=== PATIENT | female | born 2000 | race Two or more races ===

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

== ENCOUNTER 2018-06-08 01:30 | Emergency (ER) | payer MEDICAID ==
[2018-06-08] MEDS ORDERED: ACETAMINOPHEN 325 MG TABLET PO ONE (03:28)
[2018-06-08] MEDS ORDERED: AMOXICILLIN TRIHYDRATE 500 MG CAPSULE PO ONE (03:28)
--- NOTE | 2018-06-08 03:34 | ER Document Report ---
ED General - General Chief Complaint: Ear Pain Stated Complaint: EAR PAIN Time Seen by Provider: 06/08/18 02:45 Notes: Patient is a 17-year-old female without chronic medical problems who presents with 2 days of progressively worsening left ear pain. She does describe this as a severe, throbbing, constant pain to the left ear. Nothing seems to worsen the pain, ibuprofen mildly improves the pain. No history of similar symptoms in the past. She has not seen her primary doctor regarding today's concerns. She states that she has had body aches but denies any associated vomiting, headache, difficulty breathing or swallowing. TRAVEL OUTSIDE OF THE [place] IN LAST 30 DAYS: No - Related Data Allergies/Adverse Reactions: No Known Allergies Allergy (Verified 11/10/17 21:05) Past Medical History - General Information source: Patient - Social History Smoking Status: Never Smoker Frequency of alcohol use: None Drug Abuse: None Lives with: Parents Family History: Reviewed & Not Pertinent Renal/ Medical History: Denies: Hx Peritoneal Dialysis Past Surgical History: Reports: Hx Orthopedic Surgery - bilateral foot toe removal, left forearm, Hx Vascular Surgery - L ARM - Immunizations Hx Diphtheria, Pertussis, Tetanus Vaccination: No Review of Systems - Review of Systems Notes: Constitutional: Negative for fever. Positive for body aches HENT: Positive for left ear pain Eyes: Negative for visual changes. Cardiovascular: Negative for chest pain. Respiratory: Negative for shortness of breath. Gastrointestinal: Negative for abdominal pain, vomiting or diarrhea. Genitourinary: Negative for dysuria. Musculoskeletal: Negative for back pain. Skin: Negative for rash. Neurological: Negative for headaches, weakness or numbness. 10 point ROS negative except as marked above and in HPI. Physical Exam - Vital signs Vitals: Temp Pulse Resp BP Pulse Ox 97.6 F 90 16 131/86 H 100 06/08/18 01:41 06/08/18 01:41 06/08/18 01:41 06/08/18 01:41 06/08/18 01:41 Interpretation: Normal Notes: PHYSICAL EXAMINATION: GENERAL: Well-appearing, well-nourished and in no acute distress. HEAD: Atraumatic, normocephalic. EYES: sclera anicteric, conjunctiva are normal. ENT: Moist mucous membranes. Right TM clear, left TM with bulging, erythema and purulent effusion NECK: Normal range of motion, mild left segmental lymphadenopathy LUNGS: Normal work of breathing HEART: 2+ radial pulses bilaterally EXTREMITIES: no pitting or edema. No cyanosis. NEUROLOGICAL: No focal neurological deficits. Moves all extremities spontaneously and on command. PSYCH: Normal mood, normal affect. SKIN: Warm, Dry, normal turgor, no rashes or lesions noted. Course - Re-evaluation Re-evalutation: 06/08/18 03:29 Presentation is most consistent with an acute left-sided otitis media. Clinical history as well as exam is most consistent with this diagnosis. Based on history and examination do not suspect an acute meningitis, encephalitis, peritonsillar abscess, or retropharyngeal abscess. Patient ld is otherwise well in appearance, no acute distress. Vitals otherwise within normal limits. The patient will be started on amoxicillin 3 times a day for 10 days. At this time will discharge with return precautions and follow-up recommendations. Verbal discharge instructions given a the bedside to the parents and opportunity for questions given. Medication warnings reviewed. Patient is in agreement with this plan and has verbalized understanding of return precautions and the need for primary care follow-up in the next 24-72 hours. - Vital Signs Vital signs: Temp Pulse Resp BP Pulse Ox 97.6 F 90 16 131/86 H 100 06/08/18 01:41 06/08/18 01:41 06/08/18 01:41 06/08/18 01:41 06/08/18 01:41 Discharge - Discharge Clinical Impression: Left otitis media Qualifiers: Otitis media type: suppurative Chronicity: acute Recurrence: non-recurrent Spontaneous tympanic membrane rupture: without spontaneous rupture Qualified Code(s): H66.002 - Acute suppurative otitis media without spontaneous rupture of ear drum, left ear Condition: Good Disposition: HOME, SELF-CARE Additional Instructions: You were seen today for ear pain and have an acute ear infection. Please take the antibiotic that has been prescribed until it is completed even if you are feeling better before you have finished all the antibiotics. For your pain: Take ibuprofen 600 mg and acetaminophen 1000 mg every 6 hours together as needed for pain. Return if you have worsening of your pain, loss of hearing in the affected ear, worsening facial pain, headaches, pass out, or any other symptoms that are worrisome to you. Prescriptions: Amoxicillin 1 tab PO TID #30 tab Referrals: YOHAN HOU MD [Primary Care Provider] - Follow up as needed
[2018-06-08 03:40] VITALS: BP 128/74
== END 2018-06-08 03:40 | disposition home or self-care (01) ==
LOC: ER 01:30
DX: H66.002 Acute suppurative otitis media without spontaneous rupture of ear drum, left ear (principal); H92.02 Otalgia, left ear; M79.10 Myalgia, unspecified site
CPT/HCPCS: 99282; J3490

== ENCOUNTER 2018-08-01 20:46 | Emergency (ER) | payer MEDICAID ==
[2018-08-01] MEDS ORDERED: NORMAL SALINE 1000 ML 1,000 ML IV ONE (22:56)
[2018-08-01] MEDS ORDERED: ACETAMINOPHEN 325 MG TABLET PO ONE (22:56)
--- NOTE | 2018-08-01 22:59 | ER Document Report ---
ED General - General Chief Complaint: Abdominal Pain Stated Complaint: DIZZINESS Time Seen by Provider: 08/01/18 22:46 Primary Care Provider: [facility] [Provider Group] - Follow up as needed YOHAN HOU MD [Primary Care Provider] - Follow up tomorrow Mode of Arrival: Ambulatory Information source: Patient Notes: Patient presents complaining of headache, abdominal pain and dizziness for the past 2 days. Patient states presently the dizziness and abdominal pain are resolved. Patient also reports left ear pain for the past week. Patient reports nausea and vomiting x1 episode today. Patient denies any fever diarrhea, vaginal bleeding or discharge. Patient denies any urinary symptoms. TRAVEL OUTSIDE OF THE [place] IN LAST 30 DAYS: No - HPI Onset: Other - Abdominal pain times 2 days, ear pain times 1 week Quality of pain: Achy Pain Level: 2 Associated symptoms: Earache, Nausea, Vomiting. denies: Chest pain, Nonproductive cough, Productive cough, Diarrhea, Fever Exacerbated by: Denies Relieved by: Denies Similar symptoms previously: No Recently seen / treated by doctor: No - Related Data Allergies/Adverse Reactions: No Known Allergies Allergy (Verified 11/10/17 21:05) Past Medical History - General Information source: Patient - Social History Smoking Status: Never Smoker Frequency of alcohol use: None Drug Abuse: None Occupation: [employer] Lives with: Spouse/Significant other Family History: Reviewed & Not Pertinent - Medical History Medical History: Negative Renal/ Medical History: Denies: Hx Peritoneal Dialysis Past Surgical History: Reports: Hx Orthopedic Surgery - bilateral foot toe removal, left forearm, Hx Vascular Surgery - L ARM - Immunizations Hx Diphtheria, Pertussis, Tetanus Vaccination: No Review of Systems - Review of Systems Constitutional: No symptoms reported. denies: Fever, Recent illness EENT: Ear pain, Ear discharge Cardiovascular: Dizziness - Now resolved Respiratory: No symptoms reported. denies: Cough, Short of breath Gastrointestinal: Abdominal pain, Nausea, Vomiting. denies: Diarrhea Genitourinary: No symptoms reported. denies: Dysuria, Flank pain Female Genitourinary: Painful intercourse. denies: , Vaginal discharge Musculoskeletal: No symptoms reported. denies: Back pain Skin: No symptoms reported Hematologic/Lymphatic: No symptoms reported Neurological/Psychological: Headaches Physical Exam - Vital signs Vitals: Temp Pulse Resp BP Pulse Ox 98.5 F 100 H 14 137/79 H 99 08/01/18 21:02 08/01/18 21:02 08/01/18 21:02 08/01/18 21:02 08/01/18 21:02 - General General appearance: Appears well, Alert In distress: None - HEENT Head: Normocephalic Eyes: Normal Conjunctiva: Normal Ears: Normal External canal: Other - Purulent drainage and debris to the left external auditory canal, serous effusion to the right ear. No mastoid tenderness or swelling. Patient does have tenderness with movement of left helix. Tympanic membrane: Serous effusion - Left Nasal: Normal Mouth/Lips: Normal Mucous membranes: Normal Pharynx: Normal. No: Erythema, Exudate, Peritonsillar abscess Neck: Normal, Supple. No: Lymphadenopathy, Meningismus - Respiratory Respiratory status: No respiratory distress Chest status: Nontender Breath sounds: Normal. No: Rales, Rhonchi, Stridor, Wheezing Chest palpation: Normal - Cardiovascular Rhythm: Regular Heart sounds: S1 appreciated, S2 appreciated Murmur: No - Abdominal Inspection: Obese Distension: No distension Bowel sounds: Normal Tenderness: Tender - Lower pelvic Organomegaly: No organomegaly - Genitourinary External exam: Normal Speculum exam: Cervix closed, Vaginal discharge Vaginal bleeding: None Bimanuel exam: Adnexal tenderness - Bilateral. No: Adnexal mass - Back Back: Normal, Nontender. No: CVA tenderness - Extremities General upper extremity: Normal inspection, Normal strength General lower extremity: Normal inspection, Normal strength - Neurological Neuro grossly intact: Yes Cognition: Normal [employer] Coma Scale Eye Opening: Spontaneous Mona Coma Scale Verbal: Oriented [employer] Coma Scale Motor: Obeys Commands Mona Coma Scale Total: 15 - Psychological Associated symptoms: Normal affect, Normal mood - Skin Skin Temperature: Warm Skin Moisture: Dry Skin Color: Normal Course - Re-evaluation Re-evalutation: 08/02/18 02:12 Patient's abdomen soft, patient does have some left lower pelvic tenderness on examination. Patient does have an ovarian cyst noted on ultrasound. No right lower quadrant or McBurney tenderness. No concern for appendicitis at this time. Patient does have serous effusion with an external ear infection which is likely causing her dizzy symptoms at this time. Patient nontoxic in appearance. Good return precautions discussed with patient and family. Patient presents with abdominal pain without signs of peritonitis or other life-threatening or serious etiology. Patient appears stable for discharge and has been instructed to return immediately if the symptoms worsen in any way for reevaluation. The patient has been instructed to return if the symptoms worsen or change in any way. - Vital Signs Vital signs: Temp Pulse Resp BP Pulse Ox 98.7 F 97 H 18 133/73 H 99 08/02/18 01:20 08/02/18 01:20 08/02/18 01:20 08/02/18 01:20 08/02/18 01:20 - Laboratory Result Diagrams: 08/01/18 23:30 08/01/18 23:30 Laboratory results interpreted by me: Labs- Entire Visit 08/01/18 08/01/18 08/01/18 22:52 23:00 23:30 WBC 9.8 RBC 4.98 Hgb 14.8 Hct 43.5 MCV 87 MCH 29.8 MCHC 34.1 RDW 12.8 Plt Count 269 Seg Neutrophils % 58.5 Lymphocytes % 31.6 Monocytes % 8.0 Eosinophils % 1.4 Basophils % 0.5 Absolute Neutrophils 5.8 Absolute Lymphocytes 3.1 Absolute Monocytes 0.8 Absolute Eosinophils 0.1 Absolute Basophils 0.0 Sodium Potassium Chloride Carbon Dioxide Anion Gap BUN Creatinine Est GFR ( Amer) Est GFR (Non-Af Amer) Glucose Calcium Total Bilirubin Direct Bilirubin Neonat Total Bilirubin Neonat Direct Bilirubin Neonat Indirect Bili AST ALT Alkaline Phosphatase Total Protein Albumin Serum HCG, Qual Urine Color YELLOW Urine Appearance SLIGHTLY-CLOUDY Urine pH 5.0 Ur Specific [place] 1.027 Urine Protein NEGATIVE Urine Glucose (UA) NEGATIVE Urine Ketones NEGATIVE Urine Blood NEGATIVE Urine Nitrite NEGATIVE Urine Bilirubin NEGATIVE Urine Urobilinogen NEGATIVE Ur Leukocyte Esterase NEGATIVE Urine WBC (Auto) 1 Urine RBC (Auto) 0 Urine Bacteria (Auto) TRACE Squamous Epi Cells Auto 5 Urine Mucus (Auto) FEW Urine Ascorbic Acid NEGATIVE Epi Cells (Wet Prep) Bacteria (Wet Prep) Trichomonas (Wet Prep) Vaginal WBC Vaginal RBC Vaginal Yeast Chlamydia DNA (PCR) N.gonorrhoeae DNA (PCR) Group A Strep Rapid NEGATIVE 08/01/18 08/01/18 08/02/18 23:30 23:30 00:02 WBC RBC Hgb Hct MCV MCH MCHC RDW Plt Count Seg Neutrophils % Lymphocytes % Monocytes % Eosinophils % Basophils % Absolute Neutrophils Absolute Lymphocytes Absolute Monocytes Absolute Eosinophils Absolute Basophils Sodium 138.8 Potassium 4.1 Chloride 104 Carbon Dioxide 28 Anion Gap 7 BUN 16 Creatinine 0.64 Est GFR ( Amer) > 60 Est GFR (Non-Af Amer) > 60 Glucose 86 Calcium 9.4 Total Bilirubin 0.3 Direct Bilirubin 0.2 Neonat Total Bilirubin Not Reportable Neonat Direct Bilirubin Not Reportable Neonat Indirect Bili Not Reportable AST 17 ALT 20 Alkaline Phosphatase 76 Total Protein 7.1 Albumin 4.3 Serum HCG, Qual NEGATIVE Urine Color Urine Appearance Urine pH Ur Specific [place] Urine Protein Urine Glucose (UA) Urine Ketones Urine Blood Urine Nitrite Urine Bilirubin Urine Urobilinogen Ur Leukocyte Esterase Urine WBC (Auto) Urine RBC (Auto) Urine Bacteria (Auto) Squamous Epi Cells Auto Urine Mucus (Auto) Urine Ascorbic Acid Epi Cells (Wet Prep) Bacteria (Wet Prep) Trichomonas (Wet Prep) Vaginal WBC Vaginal RBC Vaginal Yeast Chlamydia DNA (PCR) NOT DETECTED N.gonorrhoeae DNA (PCR) NOT DETECTED Group A Strep Rapid 08/02/18 00:02 WBC RBC Hgb Hct MCV MCH MCHC RDW Plt Count Seg Neutrophils % Lymphocytes % Monocytes % Eosinophils % Basophils % Absolute Neutrophils Absolute Lymphocytes Absolute Monocytes Absolute Eosinophils Absolute Basophils Sodium Potassium Chloride Carbon Dioxide Anion Gap BUN Creatinine Est GFR ( Amer) Est GFR (Non-Af Amer) Glucose Calcium Total Bilirubin Direct Bilirubin Neonat Total Bilirubin Neonat Direct Bilirubin Neonat Indirect Bili AST ALT Alkaline Phosphatase Total Protein Albumin Serum HCG, Qual Urine Color Urine Appearance Urine pH Ur Specific [place] Urine Protein Urine Glucose (UA) Urine Ketones Urine Blood Urine Nitrite Urine Bilirubin Urine Urobilinogen Ur Leukocyte Esterase Urine WBC (Auto) Urine RBC (Auto) Urine Bacteria (Auto) Squamous Epi Cells Auto Urine Mucus (Auto) Urine Ascorbic Acid Epi Cells (Wet Prep) 4+ EPITHELIALS SEEN Bacteria (Wet Prep) 4+ BACTERIA SEEN Trichomonas (Wet Prep) NO TRICHOMONAS SEEN Vaginal WBC 4+ WBCS SEEN Vaginal RBC NO RBCS SEEN Vaginal Yeast NO YEAST SEEN Chlamydia DNA (PCR) N.gonorrhoeae DNA (PCR) Group A Strep Rapid - Diagnostic Test Radiology reviewed: Reports reviewed Discharge - Discharge Clinical Impression: Pelvic pain, Bacterial vaginosis Otitis externa Qualifiers: Otitis externa type: unspecified type Chronicity: acute Laterality: left Qualified Code(s): H60.502 - Unspecified acute noninfective otitis externa, left ear Ovarian cyst Qualifiers: Laterality: left Qualified Code(s): N83.202 - Unspecified ovarian cyst, left side Nausea & vomiting Qualifiers: Vomiting type: unspecified Vomiting Intractability: non-intractable Qualified Code(s): R11.2 - Nausea with vomiting, unspecified Condition: Stable Disposition: HOME, SELF-CARE Instructions: Use of Ear Drops ([facility]), Observation for Appendicitis ([facility]), Otitis Externa ([facility]), Ovarian Cyst ([facility]), Vaginosis, Bacterial ([facility]), Vomiting ([facility]) Additional Instructions: Return immediately for any new or worsening symptoms Followup with your primary care provider, call tomorrow to make a followup appointment Follow-up with a solutions sales consultant for further evaluation of ovarian cyst Prescriptions: Metronidazole [Flagyl 500 mg Tablet] 500 mg PO BID #14 tablet Naproxen [Naprosyn 250 Nmg Tablet] 1 tab PO BID #14 tablet Neomy Sulf/Polymyx B Sulf/Hc [Cortisporin Ear Suspension] 4 drop OT QID #1 bottle Ondansetron HCl [Zofran 4 mg Tablet] 1 - 2 tab PO Q6 PRN #12 tablet PRN Reason: Forms: Return to Work Referrals: YOHAN HOU MD [Primary Care Provider] - Follow up tomorrow [facility] [Provider Group] - Follow up as needed
[2018-08-01 23:36] LABS: APPEARANCE,URINE SLIGHTLY-CLOUDY; BILIRUBIN,URINE NEGATIVE (NEGATIVE); COLOR,URINE YELLOW; GLUCOSE, URINE NEGATIVE (NEGATIVE); KETONES,URINE NEGATIVE (NEGATIVE); LEUKOCYTE ESTERASE,URINE NEGATIVE (NEGATIVE); NITRITE,URINE NEGATIVE (NEGATIVE); PROTEIN,URINE NEGATIVE (NEGATIVE); URINE SPECIFIC GRAVITY 1.027; UROBILINOGEN,URINE NEGATIVE mg/dL (<2.0)
[2018-08-01 23:42] LABS: ABSOLUTE EOSINOPHILS # (AUTO) 0.1 10^3/uL (0.0-0.6); ABSOLUTE LYMPHOCYTES (AUTO) 3.1 10^3/uL (0.5-4.7); ABSOLUTE MONOCYTES (AUTO) 0.8 10^3/uL (0.1-1.4); ABSOLUTE NEUT (AUTO) 5.8 10^3/uL (1.7-8.2); BASOPHILS % (AUTO) 0.5 % (0-2); EOSINOPHILS % (AUTO) 1.4 % (0-6); HEMATOCRIT 43.5 % (36.0-47.0); HEMOGLOBIN 14.8 g/dL (12.0-15.5); LYMPHOCYTES % (AUTO) 31.6 % (13-45); MEAN CORPUSCULAR HEMOGLOBIN 29.8 pg (27.0-33.4); MEAN CORPUSCULAR HGB CONC 34.1 g/dL (32.0-36.0); MEAN CORPUSCULAR VOLUME 87 fl (80-97); PLATELET COUNT 269 10^3/uL (150-450); RED BLOOD COUNT 4.98 10^6/uL (3.72-5.28); RED CELL DISTRIBUTION WIDTH 12.8 % (11.5-14.0); SEGMENTED NEUTROPHILS % (AUTO) 58.5 % (42-78); TOTAL CELLS COUNTED % (AUTO) 100 %; WHITE BLOOD COUNT 9.8 10^3/uL (4.0-10.5)
[2018-08-01 23:56] LABS: ALANINE AMINOTRANSFERASE 20 U/L (5-35); ALBUMIN 4.3 g/dL (3.7-5.6); ALKALINE PHOSPHATASE 76 U/L (50-135); ANION GAP 7 (5-19); ASPARTATE AMINO TRANSFERASE 17 U/L (5-30); BILIRUBIN,DIRECT 0.2 mg/dL (0.0-0.4); BILIRUBIN,TOTAL 0.3 mg/dL (0.2-1.3); BLOOD UREA NITROGEN 16 mg/dL (7-20); CALCIUM 9.4 mg/dL (8.4-10.2); CARBON DIOXIDE 28 mmol/L (22-30); CHLORIDE 104 mmol/L (98-107); GLUCOSE 86 mg/dL (75-110); POTASSIUM 4.1 mmol/L (3.6-5.0); SODIUM 138.8 mmol/L (137-145); TOTAL PROTEIN 7.1 g/dL (6.3-8.2)
[2018-08-02 00:27] LABS: BACTERIA (WET MOUNT) 4+ BACTERIA SEEN; EPITHELIALS (WET MOUNT) 4+ EPITHELIALS SEEN; RBCS (WET MOUNT) NO RBCS SEEN; T.VAGINALIS (WET MOUNT) NO TRICHOMONAS SEEN; WBCS (WET MOUNT) 4+ WBCS SEEN; YEAST (WET MOUNT) NO YEAST SEEN
[2018-08-02 01:21] VITALS: BP 133/73
[2018-08-02 01:52] LABS: CHLAM PCR NOT DETECTED (NOT DETECT); GON PCR NOT DETECTED (NOT DETECT)
--- NOTE | 2018-08-02 02:00 | RADIOLOGY REPORT (SQ) ---
EXAM DESCRIPTION: US TRANSVAGINAL COMPLETED DATE/TME: 08/02/2018 00:08 CLINICAL HISTORY: 17 years, Female, pelvic pain COMPARISON: 03/14/2017 ultrasound TECHNIQUE: Transverse and longitudinal transvaginal sonographic images of the pelvis LIMITATIONS: None. FINDINGS: The uterus measures 7.9 x 5.0 x 4.0 cm. The myometrium is homogenous. The endometrium measures 1.7 cm in thickness. A trace of free fluid anteriorly. This may be iatrogenic. The right ovary measures 3.1 x 2.0 x 2.1 cm. Left ovary measures 5.1 x 2.7 x 3.2 cm. Doppler and spectral analysis with color flow was utilized. Arterial and venous flow to both ovaries. Bilateral ovarian follicles with what is likely a dominant follicular cyst on the left measuring 2.7 x 2.4 x 2.0 cm. IMPRESSION: Trace of free fluid which is likely physiologic. Probable dominant follicle of the left ovary. Recommendations for f/u of ovarian anechoic simple cyst, simple cyst with single thin <3 mm septation, or focal calcification in wall of cyst (1): Pre-menopause: <= 5 cm No follow-up imaging recommended >5 cm - <=7 cm US f/u annually >7 cm Consider MR w/IVC or surgical evaluation Post-menopause (>=1 year from last menstrual period): <=3 cm No follow-up imaging recommended >3 cm - <=7 cm US f/u annually >7 cm Consider MR w/IVC or surgical evaluation (1) Recommendations based on 2010 SRU Consensus Conference Statement on the Management of Asymptomatic Ovarian and Other Adnexal Cysts Imaged at US: Radiology. 2009;256(3):943-54 copyright 2010 [employer]- All Rights Reserved
[2018-08-02] MEDS ORDERED: HYDROCODONE/ACETAMINOPHEN 5-325 MG (6 TAB/ER DISP) PO PRN (02:15)
== END 2018-08-02 02:20 | disposition home or self-care (01) ==
LOC: ER 20:46
DX: N76.0 Acute vaginitis (principal); B96.89 Other specified bacterial agents as the cause of diseases classified elsewhere; H60.502 Unspecified acute noninfective otitis externa, left ear; N83.202 Unspecified ovarian cyst, left side; R10.2 Pelvic and perineal pain; R10.9 Unspecified abdominal pain; R42 Dizziness and giddiness; H92.02 Otalgia, left ear; R11.2 Nausea with vomiting, unspecified
CPT/HCPCS: 99284; 96360; 36415; 87070 ×2; 87205; 87210; 87880; 84703; 85025; 87077; 80053; 81001; 87491; 87591; 76830; 93976; J3490; J7030

== ENCOUNTER 2018-10-11 03:12 | Emergency (ER) | payer MEDICAID ==
[2018-10-11 03:29] VITALS: BP 129/64
[2018-10-11] MEDS ORDERED: ACETAMINOPHEN 325 MG TABLET PO ONE (03:45)
[2018-10-11] MEDS ORDERED: NORMAL SALINE 1000 ML 1,000 ML IV ONE (03:46)
--- NOTE | 2018-10-11 03:50 | ER Document Report ---
ED General - General Chief Complaint: OB Problem (<20wks) Stated Complaint: DIZZINESS AND ABDOMINAL PAIN Time Seen by Provider: 10/11/18 03:37 Primary Care Provider: YOHAN HOU MD [ACTIVE STAFF] - Follow up as needed TRAVEL OUTSIDE OF THE [place] IN LAST 30 DAYS: No - HPI Notes: Patient is a 18-year-old female, G1, P0 at approximately 8 weeks gestation who presents to the emergency department for abdominal pain. She states she has been having lower abdominal pain for a few weeks. She really comes in today because she is having epigastric pain. It is sharp and stabbing. It does not radiate. She is had nausea with 2 episodes of emesis today, nonbloody nonbilious. She denies any fevers or chills. She states she has been having firm bowel movements. No dysuria, hematuria, or urinary frequency. She does complain of occasionally feeling lightheaded and dizzy over the last week as well. She denies any of this at this point. She states she is tolerating some fluids. The patient states she actually had a transvaginal ultrasound performed today at [facility]. She states that the fetus is measuring just under 8 weeks, but there is no visible heartbeat. She supposed to come back on Sunday for a repeat ultrasound. She denies any vaginal discharge or bleeding. - Related Data Allergies/Adverse Reactions: No Known Allergies Allergy (Verified 11/10/17 21:05) Past Medical History - General Information source: Patient - Social History Smoking Status: Former Smoker Family History: Reviewed & Not Pertinent Renal/ Medical History: Denies: Hx Peritoneal Dialysis Past Surgical History: Reports: Hx Orthopedic Surgery - bilateral foot toe removal, left forearm, Hx Vascular Surgery - L ARM - Immunizations Hx Diphtheria, Pertussis, Tetanus Vaccination: No Review of Systems - Review of Systems Constitutional: No symptoms reported EENT: No symptoms reported Cardiovascular: No symptoms reported Respiratory: No symptoms reported Gastrointestinal: See HPI Genitourinary: No symptoms reported Female Genitourinary: See HPI Musculoskeletal: No symptoms reported Skin: No symptoms reported Neurological/Psychological: No symptoms reported Physical Exam - Vital signs Vitals: Temp Pulse Resp BP Pulse Ox 98.8 F 78 18 129/64 H 98 10/11/18 03:27 10/11/18 03:27 10/11/18 03:27 10/11/18 03:27 10/11/18 03:27 - Notes Notes: Vital signs reviewed, please refer to chart. Patient is normocephalic, atraumatic. Pupils equal round, reactive to light. Neck is supple without meningismus. Heart is regular rate and rhythm. Lungs are clear to auscultation bilaterally. Abdomen is soft, moderately tender in the epigastric region without rebound or guarding, normoactive bowel sounds throughout. Extremities without cyanosis, clubbing, edema. Peripheral pulses are equal. Skin is warm and dry. Patient is awake, alert, neurological exam is nonfocal. Course - Re-evaluation Re-evalutation: 10/11/18 03:49 Presents to the emergency department for evaluation. She complains of lower abdominal pain, but she is already had an ultrasound that confirmed intrauterine , although no heart beat was seen. She already has follow-up with this. We will further evaluate the patient for this epigastric pain. She is medicated here with IV fluids and Tylenol. Laboratory investigations ordered. Will monitor. 10/11/18 05:38 Patient feeling improved. I am unclear as to the etiology of her upper abdominal pain, but serial abdominal exams are benign. She is to follow-up with the women's health clinic next week, have repeat ultrasound. It is reinforced with this patient that should she have vaginal bleeding she needs to be seen. She voiced understanding to this and was discharged. - Vital Signs Vital signs: Temp Pulse Resp BP Pulse Ox 98.8 F 78 18 129/64 H 98 10/11/18 03:27 10/11/18 03:27 10/11/18 03:27 10/11/18 03:27 10/11/18 03:27 - Laboratory Result Diagrams: 10/11/18 04:30 10/11/18 04:30 Laboratory results interpreted by me: 10/11/18 04:00 Ur Leukocyte Esterase TRACE H Urine HCG, Qual POSITIVE H Discharge - Discharge Clinical Impression: Epigastric abdominal pain Condition: Stable Disposition: HOME, SELF-CARE Instructions: Abdominal Pain ([facility]) Additional Instructions: No clear cause was found for your abdominal pain today. Rest, clear liquids. Have your ultrasound as scheduled next week. If you develop vaginal bleeding, increased pain, or worsening or new concerning symptoms of any sort, return immediately to the emergency department for reevaluation. Referrals: YOHAN HOU MD [ACTIVE STAFF] - Follow up as needed
[2018-10-11 04:24] LABS: APPEARANCE,URINE CLEAR; BILIRUBIN,URINE NEGATIVE (NEGATIVE); COLOR,URINE YELLOW; GLUCOSE, URINE NEGATIVE (NEGATIVE); KETONES,URINE NEGATIVE (NEGATIVE); LEUKOCYTE ESTERASE,URINE TRACE (NEGATIVE); NITRITE,URINE NEGATIVE (NEGATIVE); PROTEIN,URINE NEGATIVE (NEGATIVE); URINE SPECIFIC GRAVITY 1.021; UROBILINOGEN,URINE NEGATIVE mg/dL (<2.0)
[2018-10-11 04:47] LABS: ABSOLUTE EOSINOPHILS # (AUTO) 0.1 10^3/uL (0.0-0.6); ABSOLUTE LYMPHOCYTES (AUTO) 2.7 10^3/uL (0.5-4.7); ABSOLUTE NEUT (AUTO) 6.3 10^3/uL (1.7-8.2); BASOPHILS % (AUTO) 0.4 % (0-2); EOSINOPHILS % (AUTO) 1.1 % (0-6); HEMATOCRIT 38.5 % (36.0-47.0); HEMOGLOBIN 13.2 g/dL (12.0-15.5); LYMPHOCYTES % (AUTO) 26.5 % (13-45); MEAN CORPUSCULAR HEMOGLOBIN 29.1 pg (27.0-33.4); MEAN CORPUSCULAR HGB CONC 34.1 g/dL (32.0-36.0); MEAN CORPUSCULAR VOLUME 85 fl (80-97); MONOCYTES % (AUTO) 10.2 % (3-13); PLATELET COUNT 295 10^3/uL (150-450); RED BLOOD COUNT 4.52 10^6/uL (3.72-5.28); RED CELL DISTRIBUTION WIDTH 12.8 % (11.5-14.0); SEGMENTED NEUTROPHILS % (AUTO) 61.8 % (42-78); TOTAL CELLS COUNTED % (AUTO) 100 %; WHITE BLOOD COUNT 10.2 10^3/uL (4.0-10.5)
[2018-10-11 05:07] LABS: ALANINE AMINOTRANSFERASE 23 U/L (9-52); ALBUMIN 3.7 g/dL (3.5-5.0); ALKALINE PHOSPHATASE 58 U/L (38-126); ANION GAP 9 (5-19); ASPARTATE AMINO TRANSFERASE 14 U/L (14-36); BILIRUBIN,DIRECT 0.2 mg/dL (0.0-0.4); BILIRUBIN,TOTAL 0.2 mg/dL (0.2-1.3); BLOOD UREA NITROGEN 14 mg/dL (7-20); CALCIUM 9.8 mg/dL (8.4-10.2); CARBON DIOXIDE 25 mmol/L (22-30); CHLORIDE 106 mmol/L (98-107); GLUCOSE 84 mg/dL (75-110); LIPASE 91.8 U/L (23-300); POTASSIUM 3.7 mmol/L (3.6-5.0); SODIUM 139.9 mmol/L (137-145); TOTAL PROTEIN 6.7 g/dL (6.3-8.2)
== END 2018-10-11 05:54 | disposition home or self-care (01) ==
LOC: ER 03:12
DX: O26.91 Pregnancy related conditions, unspecified, first trimester (principal); R10.13 Epigastric pain; R10.30 Lower abdominal pain, unspecified; Z3A.08 8 weeks gestation of pregnancy
CPT/HCPCS: 99284; 36415; 83690; 85025; 81025; 80053; 81001; J3490; J7030

== ENCOUNTER → 2018-10-18 | Outpatient (CLI) | payer MEDICAID | LOC: OD 14:04 | PROVIDERS: ATTEND Student in an Organized Health Care Education/Training Program | DX: O02.1 Missed abortion (principal) | CPT/HCPCS: 36415; 84702 ==

== ENCOUNTER 2018-10-20 21:16 | Emergency (ER) | payer MEDICAID ==
[2018-10-20 23:45] LABS: APPEARANCE,URINE SLIGHTLY-CLOUDY; BILIRUBIN,URINE NEGATIVE (NEGATIVE); COLOR,URINE YELLOW; GLUCOSE, URINE NEGATIVE (NEGATIVE); KETONES,URINE 80 mg/dL (NEGATIVE); LEUKOCYTE ESTERASE,URINE TRACE (NEGATIVE); NITRITE,URINE NEGATIVE (NEGATIVE); PROTEIN,URINE NEGATIVE (NEGATIVE); URINE SPECIFIC GRAVITY 1.027; UROBILINOGEN,URINE NEGATIVE mg/dL (<2.0)
[2018-10-21] MEDS ORDERED: NORMAL SALINE 1000 ML 1,000 ML IV ONE (00:17)
[2018-10-21] MEDS ORDERED: ONDANSETRON HCL INJ/PF 4 MG/2 ML SDV IV ONE (00:18)
[2018-10-21] MEDS ORDERED: MORPHINE SULFATE 10 MG/ML INJ IV ONE (00:18)
[2018-10-21 00:32] LABS: ABSOLUTE EOSINOPHILS # (AUTO) 0.1 10^3/uL (0.0-0.6); ABSOLUTE LYMPHOCYTES (AUTO) 2.4 10^3/uL (0.5-4.7); ABSOLUTE MONOCYTES (AUTO) 0.7 10^3/uL (0.1-1.4); ABSOLUTE NEUT (AUTO) 7.5 10^3/uL (1.7-8.2); BASOPHILS % (AUTO) 0.4 % (0-2); EOSINOPHILS % (AUTO) 0.6 % (0-6); HEMATOCRIT 39.1 % (36.0-47.0); HEMOGLOBIN 13.2 g/dL (12.0-15.5); LYMPHOCYTES % (AUTO) 22.3 % (13-45); MEAN CORPUSCULAR HEMOGLOBIN 28.9 pg (27.0-33.4); MEAN CORPUSCULAR HGB CONC 33.6 g/dL (32.0-36.0); MEAN CORPUSCULAR VOLUME 86 fl (80-97); MONOCYTES % (AUTO) 6.7 % (3-13); PLATELET COUNT 317 10^3/uL (150-450); RED BLOOD COUNT 4.55 10^6/uL (3.72-5.28); RED CELL DISTRIBUTION WIDTH 12.7 % (11.5-14.0); TOTAL CELLS COUNTED % (AUTO) 100 %; WHITE BLOOD COUNT 10.7 10^3/uL (4.0-10.5)
[2018-10-21 00:46] LABS: ALANINE AMINOTRANSFERASE 35 U/L (9-52); ALBUMIN 4.2 g/dL (3.5-5.0); ALKALINE PHOSPHATASE 68 U/L (38-126); ANION GAP 10 (5-19); ASPARTATE AMINO TRANSFERASE 85 U/L (14-36); BILIRUBIN,DIRECT 0.3 mg/dL (0.0-0.4); BILIRUBIN,TOTAL 0.4 mg/dL (0.2-1.3); BLOOD UREA NITROGEN 8 mg/dL (7-20); CALCIUM 9.2 mg/dL (8.4-10.2); CARBON DIOXIDE 24 mmol/L (22-30); CHLORIDE 105 mmol/L (98-107); GLUCOSE 89 mg/dL (75-110); POTASSIUM 3.7 mmol/L (3.6-5.0); TOTAL PROTEIN 7.7 g/dL (6.3-8.2)
[2018-10-21] MEDS ORDERED: ONDANSETRON ODT 4 MG TAB (6 TAB/ER DISP) PO PRN (02:04)
[2018-10-21] MEDS ORDERED: HYDROCODONE/ACETAMINOPHEN 5-325 MG TABLET PO ONE (02:05)
--- NOTE | 2018-10-21 02:12 | ER Document Report ---
ED GI/ - General Chief Complaint: Pelvic Pain Stated Complaint: ABDOMINAL PAIN Time Seen by Provider: 10/20/18 23:53 Primary Care Provider: CHERRY BOLANOS MD [Primary Care Provider] - Follow up as needed TRAVEL OUTSIDE OF THE [place] IN LAST 30 DAYS: No - HPI Notes: 10/21/18 Patient is a 18-year-old female who presents to the emergency department for the chief complaint of lower abdominal pain. Patient states that she was [facility] October 16 and was diagnosed with a demise at around 7 weeks 6 days. Patient states that she wants to pass the baby and/or products naturally without medication if possible and this was discussed at her OB visit. Patient states she was prescribed Tylenol #3 and sent home. Patient does have a follow-up appointment this Sunday the . Patient reports she has had an intermittent sharp discomfort to the mid lower abdomen that has become more constant tonight around 8 PM. Patient states she has had nausea as well as vomiting. Patient states she has vomited one time per day for the past 4 days. Patient denies vaginal bleeding or discharge. Patient denies chills or fever at home. Patient reports that she has had some diarrhea 2-3 times daily for the past few weeks. Patient states she has attempted to take the Tylenol #3 without relief. Mother at bedside states that she wanted her to come to get checked out because she is not sure if her symptoms are normal for what she is going through and they are not sure what to expect. Patient does deny urinary symptoms. - Related Data Allergies/Adverse Reactions: No Known Allergies Allergy (Verified 10/20/18 22:59) Past Medical History - General Information source: Patient - Social History Smoking Status: Unknown if Ever Smoked Cigarette use (# per day): No Chew tobacco use (# tins/day): No Frequency of alcohol use: None Drug Abuse: None Lives with: Family Family History: Reviewed & Not Pertinent Patient has suicidal ideation: No Patient has homicidal ideation: No - Medical History Medical History: Negative - Past Medical History Cardiac Medical History: Reports: None Pulmonary Medical History: Reports: None EENT Medical History: Reports: None Neurological Medical History: Reports: None Endocrine Medical History: Reports: None Renal/ Medical History: Reports: None. Denies: Hx Peritoneal Dialysis Malignancy Medical History: Reports: None GI Medical History: Reports: None Musculoskeletal Medical History: Reports None Skin Medical History: Reports None Psychiatric Medical History: Reports: None Traumatic Medical History: Reports: None Infectious Medical History: Reports: None Surgical Hx: Negative Past Surgical History: Reports: None, Hx Orthopedic Surgery - bilateral foot toe removal, left forearm, Hx Vascular Surgery - L ARM - Immunizations Hx Diphtheria, Pertussis, Tetanus Vaccination: No Review of Systems - Review of Systems Constitutional: See HPI EENT: No symptoms reported Cardiovascular: No symptoms reported Respiratory: No symptoms reported Gastrointestinal: See HPI Genitourinary: See HPI Female Genitourinary: No symptoms reported Musculoskeletal: No symptoms reported Skin: No symptoms reported Hematologic/Lymphatic: No symptoms reported Neurological/Psychological: No symptoms reported Physical Exam - Vital signs Vitals: Temp Pulse Resp BP Pulse Ox 98.5 F 87 20 122/65 99 10/20/18 21:38 10/20/18 21:38 10/20/18 21:38 10/20/18 21:38 10/20/18 21:38 Interpretation: Normal - Notes Notes: GENERAL: Well-appearing, well-nourished and in no acute distress. HEAD: Atraumatic, normocephalic. EYES: Pupils equal round and reactive to light, extraocular movements intact, sclera anicteric, conjunctiva are normal. ENT: TMs normal, nares patent, oropharynx clear without exudates. Moist mucous membranes. NECK: Normal range of motion, supple without lymphadenopathy or JVD. LUNGS: Breath sounds clear to auscultation bilaterally and equal. No wheezes rales or rhonchi. HEART: Regular rate and rhythm without murmurs, rubs or gallops. ABDOMEN: Soft, mildy tender throughout entire abdomen, normoactive bowel sounds. No guarding, no rebound. No masses appreciated. EXTREMITIES: Normal range of motion, no pitting or edema. No clubbing or cyanosis. NEUROLOGICAL: Cranial nerves II through XII grossly intact. Normal speech, normal gait. PSYCH: Normal mood, normal affect. SKIN: Warm, Dry, normal turgor, no rashes or lesions noted. Course - Re-evaluation Re-evalutation: 10/21/18 01:[address] Rosario with [facility] regarding patient's case and lab work. Urine culture was added as the urinalysis was non-impressive but did show trace leuks with some WBCs. Dr. Rosario recommends patient to keep her follow-up appointment this upcoming Sunday. Recommends stronger medication for pain and antinausea medicine. Patient to return to the emergency department for worsening of pain that is not controlled with her prescriptions, fever, severe abdominal pain, vaginal bleeding that is heavier than a period, large amounts of tissue and clots or worsening signs or symptoms. Did discuss this with the patient and family. Patient in agreement of plan. Will stop taking the Tylenol #3 and switch to Percocet. Patient did have ketones in her urine, one liter of IVF's given in the emergency department. Informed patient to increase fluid intake. - Vital Signs Vital signs: Temp Pulse Resp BP Pulse Ox 98.3 F 87 16 120/78 100 10/21/18 02:27 10/20/18 21:38 10/21/18 02:27 10/21/18 02:27 10/21/18 02:27 - Laboratory Result Diagrams: 10/20/18 23:08 10/20/18 23:08 Laboratory results interpreted by me: 10/20/18 10/20/18 10/20/18 23:08 23:08 23:08 WBC 10.7 H AST Beta HCG, Quant 35976.00 H Urine Ketones 80 H Ur Leukocyte Esterase TRACE H 10/20/18 23:08 WBC AST 85 H Beta HCG, Quant Urine Ketones Ur Leukocyte Esterase Patient beta-hCG, quant is 10,000 less then few days ago. This is trending downward consistent impending miscarriage. Discharge - Discharge Clinical Impression: Miscarriage, Nausea, Abdominal pain Condition: Stable Disposition: HOME, SELF-CARE Additional Instructions: Today you were seen in the emergency department for abdominal pain and nausea after demise. We did repeat your numbers (HCG quant) in your blood work and they do appear to be trending downward. This is normal. I spoke with Dr. Rosario with [facility] who would like you to keep your appointment for this upcoming Sunday for follow-up. Stop taking the Tylenol 3 that you are prescribed. I am going to prescribe you antinausea medicine called Zofran, as well as a stronger pain medication, Percocet. Percocet is a narcotic do not drive with this or operate any heavy machinery. Make sure that you are taking this medication with food. Please return to the emergency department if you develop fever, severe abdominal pain that is not controlled with the pain medication, dizziness, uncontrollable vomiting, or any other concerning signs or symptoms. You may start to bleed, this is normal. If you are soaking through multiple pads and 1 hour for 2 consecutive hours please call your doctor or return to the emergency department. Miscarriage Impending If bleeding is not severe, and if your pain can be controlled with medicine, you could complete the miscarriage at home. If that's not practical, or if the miscarriage doesn't progress spontaneously, we will arrange for a D&C procedure. You should rest in bed. Do not douche or have sex for at least a week, or until OK'd by the doctor. Be sure to follow up with your doctor. Call the doctor or return for re- examination if there is an increase in bleeding or cramping, extreme weakness, fainting, fever, or passage of tissue. Prescriptions: Oxycodone HCl/Acetaminophen [Percocet 5-325 mg Tablet] 1 - 2 tab PO Q4H PRN #15 tablet PRN Reason: Referrals: CHERRY BOLANOS MD [Primary Care Provider] - Follow up as needed
[2018-10-21 02:31] VITALS: BP 120/78
== END 2018-10-21 02:31 | disposition home or self-care (01) ==
LOC: ER 21:16
DX: O03.9 Complete or unspecified spontaneous abortion without complication (principal); R11.0 Nausea; R10.2 Pelvic and perineal pain; R10.817 Generalized abdominal tenderness
CPT/HCPCS: 99284; 96361; 96374; 96375; 36415; 87086; 84702; 85025; 80053; 81001; J2270; J2405; J7030

== ENCOUNTER 2018-10-24 09:08 | Day surgery (SDC) | payer MEDICAID ==
[2018-10-24] MEDS ORDERED: MISOPROSTOL 0.2 MG TABLET ONE (09:47)
[2018-10-24] MEDS ORDERED: METHYLERGONOVINE MALEATE INJ/PF 0.2 MG/1 ML AMPULE ONE (09:48)
[2018-10-24] MEDS ORDERED: KETOROLAC TROMETHAMINE 60 MG/2 ML SDV ONE (10:07)
[2018-10-24] MEDS ORDERED: FENTANYL CITRATE INJ/PF 100 MCG/2 ML AMPUL ONE (10:07)
[2018-10-24] MEDS ORDERED: MIDAZOLAM 2 MG/2 ML INJ ONE (10:08)
[2018-10-24] MEDS ORDERED: PROPOFOL INJ 200 MG/20 ML VIAL IV ONE (10:08)
[2018-10-24] MEDS ORDERED: LIDOCAINE 1% INJ-PF (10 MG/ML) 30 ML SDV ONE (10:09)
[2018-10-24] MEDS ORDERED: DEXAMETHASONE SOD PHOSPHATE INJ 4 MG/1 ML VIAL ONE (10:12)
[2018-10-24] MEDS ORDERED: ONDANSETRON HCL INJ/PF 4 MG/2 ML SDV ONE (10:12)
[2018-10-24] MEDS ORDERED: ONDANSETRON HCL INJ/PF 4 MG/2 ML SDV IV PRN ×2 (11:12→12:15)
[2018-10-24] MEDS ORDERED: FENTANYL CITRATE INJ/PF 100 MCG/2 ML AMPUL IV PRN ×3 (11:12)
[2018-10-24] MEDS ORDERED: OXYCODONE-ACETAMINOPHEN 5-325 MG TABLET PO PRN ×3 (11:12→12:15)
[2018-10-24] MEDS ORDERED: MORPHINE SULFATE 10 MG/ML INJ IV PRN (11:12)
[2018-10-24] MEDS ORDERED: MEPERIDINE HCL/PF INJ 25 MG/1 ML DISP.SYRIN IV PRN (11:12)
[2018-10-24] MEDS ORDERED: PROMETHAZINE HCL INJ 25 MG/1 ML VIAL IV PRN ×2 (11:12)
[2018-10-24] MEDS ORDERED: DIPHENHYDRAMINE HCL 50 MG/ML VIAL IV PRN (11:12)
--- NOTE | 2018-10-24 11:34 | Operative Report ---
Operative Report DATE OF SURGERY: 10/24/18 PREOPERATIVE DIAGNOSIS: 1. Missed at 7 weeks. 2. Rh+ POSTOPERATIVE DIAGNOSIS: Same OPERATION: Suction dilatation and curettage SURGEON: REGINO SCHMIDT ANESTHESIA: LMAC TISSUE REMOVED OR ALTERED: Products of conception COMPLICATIONS: None ESTIMATED BLOOD LOSS: 100 mL INTRAOPERATIVE FINDINGS: Uterus sounded 8 cm; large amounts of products of conception; used 8 mm curved [place]ian curette PROCEDURE: The patient was taken to the Operating Room where general anesthesia was obtained without difficulty. She was prepped and draped in the normal sterile fashion in the dorsal lithotomy position. Exam under anesthesia was performed and noted above. A speculum was placed in the vagina. The anterior cervix was grasped with a single-tooth tenaculum and the uterus sounded to 8 cm. The cervix was noted to be closed at the beginning of the procedure. Sequential dilators were then used to dilate the cervix to accommodate the the 8 mm suction curet curved. The 8 mm curved suction curet was gently advanced in the usual fashion and good return of tissue. The suction device was then activated and the curet rotated to clear the uterus of the products of conception. A sharp curettage was then performed. The suction device was then gently reintroduced and activated and the curette rotated to clear the uterus of conception which was loosened with recent sharp curettage. The sharp curettage was then performed again until a gritty texture was noted and the cavity was felt to be empty of further tissue. At this time there was minimal bleeding noted from the cervix. All instruments were removed from the patient's cervix and vagina. The tenaculum site was hemostatic. Sponge, lap, needle and instrument counts are correct 2. Doxycycline 100 mg IV was given postoperatively. The patient tolerated the procedure well and was taken to the recovery area awake and in stable condition.
[2018-10-24] MEDS ORDERED: KETOROLAC TROMETHAMINE INJ/PF 30 MG/1 ML SDV ONE (11:35)
[2018-10-24] MEDS: FENTANYL CITRATE INJ/PF 100 MCG/2 ML AMPUL ONE ×2 (11:36→11:41)
[2018-10-24] MEDS ORDERED: OXYCODONE-ACETAMINOPHEN 5-325 MG TABLET ONE (12:29)
[2018-10-24] MEDS ORDERED: DOXYCYCLINE HYCLATE 100 MG in DEXTROSE 5%-WATER 250 ML IV ONE (12:30)
[2018-10-24 17:13] VITALS: BP 110/69
== END 2018-10-24 14:20 | disposition home or self-care (01) ==
LOC: OROUT 09:08
PROVIDERS: ATTEND Obstetrics & Gynecology
DX: O02.1 Missed abortion (principal); Z87.891 Personal history of nicotine dependence
CPT/HCPCS: 88305 ×2; 59820; J2250; J3490 ×2; J1885 ×2; J3010; J2405; J7060; J2704; 1965; J1100; J2210

== ENCOUNTER 2018-11-17 19:25 | Emergency (ER) | payer MEDICAID ==
[2018-11-17] MEDS ORDERED: CIPROFLOXACIN HCL/DEXAMETH OTIC DROP 7.5 ML AS ONE (20:12)
[2018-11-17] MEDS ORDERED: POLYMYXIN B SULFATE/TMP OPH SOLN (10 ML/ER DISP) AS ONE (20:13)
--- NOTE | 2018-11-17 20:19 | ER Document Report ---
HPI - HPI Patient complains to provider of: Left ear pain Time Seen by Provider: 11/17/18 19:57 Pain Level: 4 Context: Patient is otherwise healthy 18-year-old female presents to the emergency department for left ear pain. Patient states she started with left ear pain this morning. States she is an old bottle of eardrops that she had from "the last time this happened." States the eardrop bottle was a few months old. Patient is unsure of the name of the medication. Patient states she tried to place a Q-tip in her left ear to remove the debris and that caused more pain which is why she presents to the emergency room. Patient denies any fever, URI symptoms. Patient denies any recent swimming. - CONSTITUTIONAL Constitutional: DENIES: Fever - EENT EENT: REPORTS: Ear Pain - left ear - RESPIRATORY Respiratory: REPORTS: Coughing - REPRODUCTIVE Reproductive: DENIES: : Past Medical History - General Information source: Patient - Social History Smoking Status: Never Smoker Family History: Reviewed & Not Pertinent Patient has suicidal ideation: No Patient has homicidal ideation: No - Past Medical History Cardiac Medical History: Denies: Hx Coronary Artery Disease, Hx Heart Attack, Hx Hypertension Pulmonary Medical History: Denies: Hx Asthma, Hx Bronchitis, Hx COPD, Hx Pneumonia Neurological Medical History: Denies: Hx Cerebrovascular Accident, Hx Seizures Renal/ Medical History: Denies: Hx Peritoneal Dialysis Musculoskeletal Medical History: Denies Hx Arthritis Past Surgical History: Reports: Hx Gynecologic Surgery - d&c, Hx Orthopedic Surgery - bilateral foot toe removal, left forearm, Hx Vascular Surgery - L ARM - Immunizations Hx Diphtheria, Pertussis, Tetanus Vaccination: Yes Vertical Provider Document - CONSTITUTIONAL Agree With Documented VS: Yes Notes: GENERAL: Alert, interacts well. No acute distress. HEAD: Normocephalic, atraumatic. EYES: Pupils equal, round, and reactive to light. Extraocular movements intact. ENT: Oral mucosa moist, tongue midline. Nares patent, right TM intact, canal within normal limits. Left canal obscured with debris, TM un visualized. Tragal tenderness noted. No mastoid erythema, pain noted bilaterally. Pharynx within normal limits no palatal petechiae noted. NECK: Full range of motion. Supple. Trachea midline. LUNGS: Clear to auscultation bilaterally, no wheezes, rales, or rhonchi. No respiratory distress. HEART: Regular rate and rhythm. No murmur ABDOMEN: Soft, non-tender. Non-distended. Bowel sounds present in all 4 quadrants. EXTREMITIES: Moves all 4 extremities spontaneously. No edema, normal radial and dorsalis pedis pulses bilaterally. No cyanosis. BACK: no cervical, thoracic, lumbar midline tenderness. No saddle anesthesia, normal distal neurovascular exam. NEUROLOGICAL: Alert and oriented x3. Normal speech. cranial nerves II through XII grossly intact. PSYCH: Normal affect, normal mood. SKIN: Warm, dry, normal turgor. No rashes or lesions noted. - INFECTION CONTROL TRAVEL OUTSIDE OF THE [place] IN LAST 30 DAYS: No Course - Re-evaluation Re-evalutation: 11/17/18 20:26 Patient's physical exam is consistent with otitis externa. Patient was given Polytrim drops in the emergency room with instructions for use. Discussed [id number] Tylenol and Motrin for generalized pain control. Discussed close follow-up with primary care provider and return precautions. Patient stable for discharge. - Vital Signs Vital signs: Temp Pulse Resp BP Pulse Ox 98.5 F 92 22 H 115/69 98 11/17/18 19:37 11/17/18 19:37 11/17/18 19:37 11/17/18 19:37 11/17/18 19:37 Discharge - Discharge Clinical Impression: Otitis externa Qualifiers: Otitis externa type: unspecified type Chronicity: acute Laterality: left Qualified Code(s): H60.502 - Unspecified acute noninfective otitis externa, left ear Condition: Stable Disposition: HOME, SELF-CARE Instructions: Use of Ear Drops ([facility]), Otitis Externa ([facility]) Additional Instructions: As we discussed you have been seen and treated in the emergency department for an outer ear infection. Please use antibiotic drops as prescribed. Please also take [id number] Tylenol Motrin for generalized discomfort. Please return to the emergency room for any concerns and follow-up with your primary care provider in the next 24 to 48 hours. Prescriptions: Polymyxin B Sulf/Trimethoprim [Polytrim Eye Drops] 4 drop Q6 10 Days #10 ml Referrals: LASHAY FLORES PA [Primary Care Provider] - Follow up as needed
[2018-11-17] MEDS ORDERED: ACETAMINOPHEN 325 MG TABLET PO ONE (20:27)
[2018-11-17 20:41] VITALS: BP 106/71
== END 2018-11-17 20:47 | disposition home or self-care (01) ==
LOC: ER 19:25
DX: H60.502 Unspecified acute noninfective otitis externa, left ear (principal); H92.02 Otalgia, left ear; R05 Cough
CPT/HCPCS: 99282; J3490 ×2

== ENCOUNTER 2018-12-11 01:14 | Emergency (ER) | payer MEDICAID ==
[2018-12-11 02:04] LABS: APPEARANCE,URINE SLIGHTLY-CLOUDY; BILIRUBIN,URINE NEGATIVE (NEGATIVE); COLOR,URINE AMBER; GLUCOSE, URINE NEGATIVE (NEGATIVE); KETONES,URINE TRACE mg/dL (NEGATIVE); LEUKOCYTE ESTERASE,URINE TRACE (NEGATIVE); NITRITE,URINE NEGATIVE (NEGATIVE); PROTEIN,URINE NEGATIVE (NEGATIVE); URINE SPECIFIC GRAVITY 1.028; UROBILINOGEN,URINE NEGATIVE mg/dL (<2.0)
[2018-12-11] MEDS ORDERED: DEXAMETHASONE SOD PHOS INJ 10 MG/1 ML VIAL IV ONE (02:58)
[2018-12-11] MEDS ORDERED: KETOROLAC TROMETHAMINE INJ/PF 30 MG/1 ML SDV IV ONE (03:05)
[2018-12-11] MEDS ORDERED: NORMAL SALINE 1000 ML 1,000 ML IV ONE (03:05)
--- NOTE | 2018-12-11 03:11 | ER Document Report ---
ED ENT - General Chief Complaint: Sore Throat Stated Complaint: COUGH Time Seen by Provider: 12/11/18 02:44 Primary Care Provider: LASHAY FLORES PA [PHYSICIAN [employer]] - Follow up as needed Notes: Patient is a 18-year-old female presents to the emergency department with a chief complaint of sore throat. Patient states that this developed about 1 day ago. Patient denies fever. Patient denies diarrhea. Patient denies abdominal pain. Patient did have an episode of vomiting which she says is mostly watery saliva. Patient has had nausea. Patient complains of bilateral ear pain. Patient denies cough. Patient states she is also developed congestion which started earlier today. Patient did report she had a D&C on October 24. She states that yesterday she bled through 4 pads in 1 hour but has since stopped. Patient currently denying lower abdominal pain, vaginal bleeding or discharge. Patient denies any urinary symptoms. TRAVEL OUTSIDE OF THE [place] IN LAST 30 DAYS: No - Related Data Allergies/Adverse Reactions: red dye Allergy (Verified 10/24/18 10:16) Past Medical History - General Information source: Patient - Social History Smoking Status: Never Smoker Cigarette use (# per day): No Chew tobacco use (# tins/day): No Frequency of alcohol use: None Drug Abuse: None Lives with: Family Family History: Reviewed & Not Pertinent Patient has suicidal ideation: No Patient has homicidal ideation: No - Past Medical History Cardiac Medical History: Reports: None Denies: Hx Coronary Artery Disease, Hx Heart Attack, Hx Hypertension Pulmonary Medical History: Reports: None Denies: Hx Asthma, Hx Bronchitis, Hx COPD, Hx Pneumonia EENT Medical History: Reports: None Neurological Medical History: Reports: None. Denies: Hx Cerebrovascular Accident, Hx Seizures Endocrine Medical History: Reports: None Renal/ Medical History: Reports: None. Denies: Hx Peritoneal Dialysis Malignancy Medical History: Reports: None GI Medical History: Reports: None Musculoskeletal Medical History: Reports None, Denies Hx Arthritis Skin Medical History: Reports None Psychiatric Medical History: Reports: None Traumatic Medical History: Reports: None Infectious Medical History: Reports: None Past Surgical History: Reports: Hx Gynecologic Surgery - d&c, Hx Orthopedic Surgery - bilateral foot toe removal, left forearm, Hx Vascular Surgery - L ARM - Immunizations Hx Diphtheria, Pertussis, Tetanus Vaccination: Yes Review of Systems - Review of Systems Constitutional: See HPI EENT: See HPI Cardiovascular: No symptoms reported Respiratory: No symptoms reported Gastrointestinal: See HPI Genitourinary: No symptoms reported Female Genitourinary: See HPI Musculoskeletal: No symptoms reported Skin: No symptoms reported Hematologic/Lymphatic: No symptoms reported Neurological/Psychological: No symptoms reported Physical Exam - Vital signs Vitals: Temp Pulse Resp BP Pulse Ox 98.0 F 119 H 18 120/72 98 12/11/18 01:12/11/18 01:12/11/18 01:12/11/18 01:12/11/18 01:19 Interpretation: Tachycardic - Notes Notes: GENERAL: Well-appearing, well-nourished and in no acute distress. HEAD: Atraumatic, normocephalic. EYES: Pupils equal round and reactive to light, extraocular movements intact, sclera anicteric, conjunctiva are normal. ENT: TMs normal, ear canal's erythematous without drainage, nares patent, mouth has a malodorous smell, tonsils +3 and erythematous with white exudate. Pharynx unremarkable. Moist mucous membranes. NECK: Normal range of motion, supple with cervical lymphadenopathy or JVD. LUNGS: Breath sounds clear to auscultation bilaterally and equal. No wheezes rales or rhonchi. HEART: Regular rate and rhythm without murmurs, rubs or gallops. ABDOMEN: Soft, nontender, normoactive bowel sounds. No guarding, no rebound. No masses appreciated. BACK: No cervical, thoracic, lumbar midline tenderness. No saddle anesthesia, normal distal neurovascular exam. GENITOURINARY: Deferred. EXTREMITIES: Normal range of motion, no pitting or edema. No clubbing or cyanosis. NEUROLOGICAL: Cranial nerves II through XII grossly intact. Normal speech, normal gait. PSYCH: Normal mood, normal affect. SKIN: Warm, Dry, normal turgor, no rashes or lesions noted. Course - Re-evaluation Re-evalutation: 12/11/18 03:11 She was noted to be tachycardic in triage. We will give a liter bolus of fluids and obtain a mono since the strep was negative. 12/11/18 04:12 After receiving IV steroids and pain medication patient reports feeling much better. I did reevaluate visualize the throat which is patent and the tonsils have significantly decreased in size. Patient states that she feels like she can swallow much better. Due to the patient's malodorous smell of her mouth, tonsillar hypertrophy with significant exudates I will go ahead and treat for strep throat. I did discuss with the the patient and she agrees and would like to go ahead and receive the one time shot of penicillin. - Vital Signs Vital signs: Temp Pulse Resp BP Pulse Ox 98.0 F 119 H 18 120/72 98 12/11/18 01:19 12/11/18 01:19 12/11/18 01:19 12/11/18 01:19 12/11/18 01:19 - Laboratory Laboratory results interpreted by me: 12/11/18 01:50 Urine Ketones TRACE H Ur Leukocyte Esterase TRACE H Discharge - Discharge Clinical Impression: Throat pain Acute pharyngitis Qualifiers: Pharyngitis/tonsillitis etiology: unspecified etiology Qualified Code(s): J02.9 - Acute pharyngitis, unspecified Condition: Stable Disposition: HOME, SELF-CARE Additional Instructions: Today you were seen in the emergency department for sore throat. Although your strep test was negative your physical examination was significant and consistent with strep pharyngitis. After discussion we have both agreed to go ahead and treat for strep throat. Please return emergency department for worsening signs or symptoms to include difficulty breathing, increasing throat pain, high fevers, rash frequent vomiting.r possible strep throat. Sore Throat Sore throats may be caused by viruses, bacteria, or fungi. Most are due to a virus, and must get better on their own. Bacterial sore throats, particularly those due to "strep," need treatment with antibiotics. If an antibiotic is prescribed, be sure to take the medication for a full 10 days. Failure to take the antibiotic can result in complications such as rheumatic fever. Sometimes, an injection of antibiotics is given instead of pills or liquid. This single "shot" is equal in effectiveness to the oral medication. To relieve symptoms, take acetaminophen for pain. Sip clear liquids frequently, or eat popsicles or ice chips. Anesthetic sprays or lozenges may help. Make sure the air in the room is not too dry. Avoid using decongestants or antihistamines. Call the doctor if there is no improvement in two days, or if you have difficulty breathing, increasing throat pain, high fever, rash, or frequent vomiting. Strep Throat Your sore throat is due to the streptococcus germ (strep throat). Strep throat usually makes you feel quite ill with fever and aches, headache, swollen sore throat, and tender bumps under the angles of the jaw. Strep throat requires antibiotic treatment. Although the sore throat may go away by itself, complications such as rheumatic fever, kidney disease, or throat abscess can occur. We usually prescribe antibiotics by mouth. Be sure to take the medicine until it's gone. If you stop early, the strep may come back. If you are vomiting, are severely ill, or can't remember to take pills, we can give you an antibiotic shot. Take acetaminophen or ibuprofen for pain and fever. Sip frequent clear liquids, or use popsicles or ice chips. Anesthetic sprays or lozenges may help. Make sure the air in the room is not too dry. Avoid using decongestants or antihistamines. Call the doctor if there is no improvement in three days, or if you have difficulty breathing, increasing throat pain, high fever, rash, or frequent vomiting. Referrals: LASHAY FLORES PA [PHYSICIAN [employer]] - Follow up as needed
[2018-12-11] MEDS ORDERED: PENICILLIN G BENZATHINE 1.2 MILLION UNIT/2 ML DISP.SYRIN IM ONE (04:01)
[2018-12-11 05:14] VITALS: BP 104/54
== END 2018-12-11 05:13 | disposition home or self-care (01) ==
LOC: ER 01:14
DX: R07.0 Pain in throat (principal); J02.9 Acute pharyngitis, unspecified; R05 Cough
CPT/HCPCS: 99283; 96372; 96361; 96374; 96375; 36415; 87070; 87880; 81025; 86308; 81001; J1885; J0561; J7030; J1100

== ENCOUNTER 2019-02-04 20:10 | Emergency (ER) | payer MEDICAID ==
[2019-02-05] MEDS ORDERED: CIPROFLOXACIN HCL/DEXAMETH OTIC DROP 7.5 ML AD ONE (00:03)
--- NOTE | 2019-02-05 00:08 | ER Document Report ---
ED ENT - General Chief Complaint: Ear Pain Stated Complaint: EAR PAIN Time Seen by Provider: 02/04/19 23:58 Primary Care Provider: REGINO SAGASTUME DO [Primary Care Provider] - Follow up in 3-5 days Notes: 18-year-old female presented to ED for complaint of right ear pain. She states she had left ear pain a couple weeks ago she went to the primary care they gave her antibiotic drops and it got better and then slowly the right ear started hurting. She states now the right ear is painful and feels like it is clogged. She is alert oriented respirations regular and unlabored speaking in full sentences walking with a even steady gait. She states she has no other symptoms. TRAVEL OUTSIDE OF THE [place] IN LAST 30 DAYS: No - HPI Patient complains to provider of: Ear problem Onset: Last week Onset/Duration: Gradual, Worse Quality of pain: Sharp Severity: Severe Pain Level: 5 Location of pain: Ears Associated symptoms: Ear pain Similar symptoms previously: Yes Recently seen / treated by doctor: Yes - Related Data Allergies/Adverse Reactions: red dye Allergy (Verified 10/24/18 10:16) Past Medical History - General Information source: Patient - Social History Smoking Status: Never Smoker Frequency of alcohol use: None Drug Abuse: None Occupation: Factory Lives with: Spouse/Significant other Family History: Reviewed & Not Pertinent Patient has suicidal ideation: No Patient has homicidal ideation: No - Past Medical History Cardiac Medical History: Reports: None Pulmonary Medical History: Reports: None EENT Medical History: Reports: None Neurological Medical History: Reports: None Endocrine Medical History: Reports: None Renal/ Medical History: Reports: None Malignancy Medical History: Reports: None GI Medical History: Reports: None Musculoskeletal Medical History: Reports None Skin Medical History: Reports None Psychiatric Medical History: Reports: None Traumatic Medical History: Reports: None Infectious Medical History: Reports: None Past Surgical History: Reports: Hx Gynecologic Surgery - d&c, Hx Orthopedic Surgery - bilateral foot toe removal, left forearm, Hx Vascular Surgery - L ARM - Immunizations Immunizations up to date: Yes Hx Diphtheria, Pertussis, Tetanus Vaccination: Yes Review of Systems - Review of Systems Constitutional: No symptoms reported EENT: Ear pain - right ear Cardiovascular: No symptoms reported Respiratory: No symptoms reported Gastrointestinal: No symptoms reported Genitourinary: No symptoms reported Female Genitourinary: No symptoms reported Musculoskeletal: No symptoms reported Skin: No symptoms reported Hematologic/Lymphatic: No symptoms reported Neurological/Psychological: No symptoms reported -: Yes All other systems reviewed and negative Physical Exam - Vital signs Vitals: Temp Pulse Resp BP Pulse Ox 97.9 F 85 17 120/69 99 02/04/19 20:16 02/04/19 20:16 02/04/19 20:16 02/04/19 20:16 02/04/19 20:16 Interpretation: Normal - General General appearance: Appears well, Alert - HEENT Head: Normocephalic, Atraumatic Eyes: Normal Pupils: PERRL Ears: Other - pain with any movement right ear External canal: Erythema, Swollen Tympanic membrane: Normal Sinus: Normal Nasal: Normal Mouth/Lips: Normal Mucous membranes: Normal Pharynx: Normal Neck: Normal - Respiratory Respiratory status: No respiratory distress Chest status: Nontender Breath sounds: Normal Chest palpation: Normal - Cardiovascular Rhythm: Regular Heart sounds: Normal auscultation Murmur: No - Abdominal Inspection: Normal Distension: No distension Bowel sounds: Normal Tenderness: Nontender Organomegaly: No organomegaly - Back Back: Normal, Nontender - Extremities General upper extremity: Normal inspection, Nontender, Normal color, Normal ROM, Normal temperature General lower extremity: Normal inspection, Nontender, Normal color, Normal ROM, Normal temperature, Normal weight bearing. No: Bella's sign - Neurological Neuro grossly intact: Yes Cognition: Normal Orientation: AAOx4 [place] Coma Scale Eye Opening: Spontaneous [place] Coma Scale Verbal: Oriented [place] Coma Scale Motor: Obeys Commands [place] Coma Scale Total: 15 Speech: Normal Motor strength normal: LUE, RUE, LLE, RLE Sensory: Normal - Psychological Associated symptoms: Normal affect, Normal mood - Skin Skin Temperature: Warm Skin Moisture: Dry Skin Color: Normal Course - Re-evaluation Re-evalutation: 02/05/19 00:56 Patient was treated with Ciprodex eardrops into the right ear 4 drops. She was also treated with ibuprofen for the pain. She stated she was seen by primary care and given some earwax drops about a week or so ago and she was to use them for both ears because she had some pain in the left ear the drops made the left ear get better but the right ear became more more painful. She came in tonight for increased pain in the right ear. She does have a otitis externa to the right ear. - Vital Signs Vital signs: Temp Pulse Resp BP Pulse Ox 98.3 F 75 20 122/70 100 02/05/19 00:48 02/05/19 00:48 02/05/19 00:48 02/05/19 00:48 02/05/19 00:48 Discharge - Discharge Clinical Impression: Otitis externa Qualifiers: Otitis externa type: unspecified type Chronicity: acute Laterality: right Qualified Code(s): H60.501 - Unspecified acute noninfective otitis externa, right ear Condition: Stable Disposition: HOME, SELF-CARE Additional Instructions: OTITIS EXTERNA: You have otitis externa -- an infection of the outer ear canal. This can be very painful. It's sometimes called "swimmer's ear," because it often occurs after prolonged water exposure. Many things, such as earwax and dirt in the ear, can contribute to it. The usual treatment is antibiotic/antiinflammatory ear drops. Occasionally, a wick will be placed in the ear to draw in the medicine. If the infection is severe, an oral antibiotic may be prescribed. Pain medication is often needed. Avoid getting water in the ear. Outer ear infections often take longer to heal than you might expect. Some tenderness and ache in the ear may persist for about two weeks. See your physician if you fail to improve as expected. Call the doctor at once if you develop fever, increasing swelling (particularly if it makes your ear "poke out"), severe headache, stiff neck, or decreased hearing. USE OF EAR DROPS: Your ear drops won't do much good if they don't get all the way in. To help the ear drops penetrate all the way to the ear drum, use the following technique. If you encounter problems of any kind, notify the physician. (1) Lay your head sideways on a pillow. (2) Place the dropper tip just barely inside the ear canal, almost touching the bottom side of the canal. The liquid is tolerated better on the bottom of the canal. (3) Squeeze out the appropriate amount of medicine, and remove the dropper. (4) Grab the back of the ear (just behind the ear canal) between your index finger and thumb. (5) Tug up, then let the ear drop back. Repeat several times. This pumps the medicine down. (6) Wait five minutes, then place a cotton ball in the ear canal to catch and hold the medicine. CIPROFLOXACIN: You have been given an antibacterial agent, ciprofloxacin (Cipro). This medicine is not related to the penicillins, sulfas, cephalosporins, or tetracyclines. It is often given to patients who are allergic to these drugs. It has been chosen for you either because other drugs are not appropriate, or because of the nature of your problem. Cipro should not be taken with antacids, as these can decrease its effectiveness. It can be taken without regard to meals. CIPRO SHOULD NOT BE TAKEN BY CHILDREN, NURSING WOMEN, OR WOMEN. Although Cipro is usually well-tolerated, common side effects can include nausea and diarrhea. Contact your doctor if you experience any unusual symptoms while on this medication, such as joint pain or swelling, shortness of breath, wheezing, faintness, or hives. USE OF ACETAMINOPHEN (Tylenol): Acetaminophen may be taken for pain relief or fever control. It's much safer than aspirin, offering a wider range of "safe" dosages. It is safe during . Some brand names are Tylenol, Panadol, Datril, Anacin 3, Tempra, and Liquiprin. Acetaminophen can be repeated every four hours. The following are maximum recommended dosages: WEIGHT Dose Drops Elixir Chewable(80mg) (LBS.) drprs=droppers tsp=teaspoon 6 40 mg 0.4 ml (1/2) 6-11 80 mg 0.8 ml (full) tsp 1 tab 12-16 120 mg 1 1/2 drprs 3/4 tsp 1 1/2 tabs 17-23 160 mg 2 drprs 1 tsp 2 tabs 24-30 240 mg 3 drprs 1 1/2 tsp 3 tabs 30-35 320 mg 2 tsp 4 tabs 36-41 360 mg 2 1/4 tsp 4 1/2 tabs 42-47 400 mg 2 1/2 tsp 5 tabs 48-53 480 mg 3 tsp 6 tabs 54-59 520 mg 3 1/4 tsp 6 1/2 tabs 60-64 560 mg 3 1/2 tsp 7 tabs 65-70 600 mg 3 3/4 tsp 7 1/2 tabs 71-76 640 mg 4 tsp 8 tabs 77-82 720 mg 4 1/2 tsp 9 tabs 83-88 800 mg 5 tsp 10 tabs >89 pounds or adults 650 mg to 900 mg Acetaminophen can be repeated every four hours. Maximum dose not to exceed 4000 mg a day. These maximum recommended dosages are slightly higher than the dosages written on the product container, but these dosages are very safe and below the toxic dosage for acetaminophen. FOLLOW-UP CARE: If you have been referred to a physician for follow-up care, call the physicians office for an appointment as you were instructed or within the next two days. If you experience worsening or a significant change in your symptoms, notify the physician immediately or return to the Emergency Department at any time for re-evaluation. Prescriptions: Ciprofloxacin HCl/Dexameth [Ciprodex Otic Suspension 7.5 ml Bottle] 4 drop RT_EAR BID #1 bottle Forms: Return to Work Referrals: REGINO SAGASTUME DO [Primary Care Provider] - Follow up in 3-5 days
[2019-02-05] MEDS ORDERED: IBUPROFEN 800 MG TABLET PO ONE (00:10)
[2019-02-05] MEDS ORDERED: CIPROFLOXACIN HCL/DEXAMETH OTIC DROP 7.5 ML ONE (00:17)
[2019-02-05 00:50] VITALS: BP 122/70
== END 2019-02-05 01:00 | disposition home or self-care (01) ==
LOC: ER 20:10
DX: H60.501 Unspecified acute noninfective otitis externa, right ear (principal)
CPT/HCPCS: J3490 ×2

== ENCOUNTER 2019-03-06 05:18 | Emergency (ER) | payer MEDICAID ==
[2019-03-06] MEDS ORDERED: PROMETHAZINE HCL 25 MG TABLET PO ONE (06:19)
[2019-03-06] MEDS ORDERED: OXYCODONE-ACETAMINOPHEN 5-325 MG TABLET PO ONE (06:19)
[2019-03-06] MEDS ORDERED: CLARITHROMYCIN 500 MG TABLET PO ONE ×2 (06:20→06:36)
[2019-03-06] MEDS ORDERED: CIPROFLOXACIN HCL/DEXAMETH OTIC DROP 7.5 ML AU ONE (06:20)
--- NOTE | 2019-03-06 06:27 | ER Document Report ---
HPI - HPI Time Seen by Provider: 03/06/19 06:09 Pain Level: 3 Context: Patient is a 18-year-old female that comes to the emergency department for chief complaint of bilateral ear pain, worse on the left. She states she has been struggling this for some time, she states it comes and goes, she states he has been diagnosed with otitis externa on multiple occasions. She states at one point recently a few months ago she was on amoxicillin and then later on Augmentin, she also completed a course of ofloxacin about a week ago. She states she wears earplugs for work and she exchanges these every day but she still keeps getting otitis externa. She denies headache, nausea/vomiting, swelling of the ear, fever/chills, or any other complaints other than muffled hearing which is also not new for her. She denies , she denies any past medical history otherwise. - EENT EENT: REPORTS: Ear Pain - bilat - REPRODUCTIVE Reproductive: DENIES: : Past Medical History - General Information source: Patient - Social History Smoking Status: Never Smoker Lives with: Family Family History: Reviewed & Not Pertinent Patient has suicidal ideation: No Patient has homicidal ideation: No - Past Medical History Cardiac Medical History: Denies: Hx Coronary Artery Disease, Hx Heart Attack, Hx Hypertension Pulmonary Medical History: Denies: Hx Asthma, Hx Bronchitis, Hx COPD, Hx Pneumonia Neurological Medical History: Denies: Hx Cerebrovascular Accident, Hx Seizures Renal/ Medical History: Denies: Hx Peritoneal Dialysis Musculoskeletal Medical History: Denies Hx Arthritis Past Surgical History: Reports: Hx Gynecologic Surgery - d&c, Hx Orthopedic Surgery - bilateral foot toe removal, left forearm, Hx Vascular Surgery - L ARM - Immunizations Immunizations up to date: Yes Hx Diphtheria, Pertussis, Tetanus Vaccination: Yes Vertical Provider Document - CONSTITUTIONAL General Appearance: WD/WN, No Apparent Distress - INFECTION CONTROL TRAVEL OUTSIDE OF THE [place] IN LAST 30 DAYS: No - HEENT HEENT: Atraumatic, Normocephalic. negative: Normal ENT Exam - Bilateral otitis externa with some purulent material noted but no abscess. No bleeding. Difficult to visualize the tympanic membrane on either side because of the purulent material. Tragus is actually not tender on the right but is tender on the left. Mastoids both normal. No swelling of the ear itself. Nasal, oral pharyngeal exam, eye exams unremarkable. - NECK Neck: Normal Inspection - RESPIRATORY Respiratory: Breath Sounds Normal, No Respiratory Distress - CARDIOVASCULAR Cardiovascular: Regular Rate, Regular Rhythm - GI/ABDOMEN Gastrointestinal: Abdomen Soft, Abdomen Non-Tender - BACK Back: Normal Inspection - MUSCULOSKELETAL/EXTREMETIES Musculoskeletal/Extremeties: MAEW, FROM, Non-Tender - NEURO Level of Consciousness: Awake, Alert, Appropriate Motor/Sensory: No Motor Deficit, No Sensory Deficit - DERM Integumentary: Warm, Dry, No Rash Course - Re-evaluation Re-evalutation: Patient with bilateral otitis externa, worse on the left. No evidence of mastoiditis. No fever. Patient is actually not in distress. There is a lot of swelling of the canal for a wick. Unremarkable exam otherwise. Because of her repeated infections she will be placed on Ciprodex and coverage for atypicals with Biaxin. She will be referred to ENT. Patient states appreciation. Discussed follow-up and return precautions. Patient states understanding and agreement with plan. She did request some pain medication so she can sleep as she has had difficulty over the past 2 days with this. She was provided with a few with precautions. - Vital Signs Vital signs: Temp Pulse Resp BP Pulse Ox 98.3 F 99 16 132/75 H 97 03/06/19 05:23 03/06/19 05:23 03/06/19 05:23 03/06/19 05:23 03/06/19 05:23 Discharge - Discharge Clinical Impression: Otitis externa Qualifiers: Otitis externa type: unspecified type Chronicity: acute Laterality: bilateral Qualified Code(s): H60.503 - Unspecified acute noninfective otitis externa, bilateral Condition: Stable Disposition: HOME, SELF-CARE Additional Instructions: You have severe otitis externa (infection of the ear canal). Take the clarithromycin antibiotic as prescribed (next dose is tomorrow, 03/07), use the eardrops as prescribed (4 drops twice a day x7 days). Please call the ENT referral listed for close follow-up. Take ibuprofen for pain, use the provided pain medication only for severe pain. Return if you worsen including fever, swelling of the ear, vomiting, or any other concerning or worsening symptoms. Prescriptions: Clarithromycin [Biaxin 250 mg Tablet] 1 tab PO Q12 #12 tab Oxycodone HCl/Acetaminophen [Percocet 5-325 mg Tablet] 1 - 2 tab PO TID PRN #8 tablet PRN Reason: Forms: Return to Work Referrals: MARIAN LOJA DO [ASSOCIATE] - Follow up tomorrow
[2019-03-06 06:57] VITALS: BP 130/72
== END 2019-03-06 06:56 | disposition home or self-care (01) ==
LOC: ER 05:18
DX: H60.503 Unspecified acute noninfective otitis externa, bilateral (principal); H92.03 Otalgia, bilateral
CPT/HCPCS: 99282; J3490 ×3

== ENCOUNTER 2019-05-26 00:07 | Emergency (ER) | payer MEDICAID ==
[2019-05-26 01:01] LABS: ABSOLUTE EOSINOPHILS # (AUTO) 0.1 10^3/uL (0.0-0.6); ABSOLUTE NEUT (AUTO) 6.7 10^3/uL (1.7-8.2); BASOPHILS % (AUTO) 0.3 % (0-2); EOSINOPHILS % (AUTO) 0.9 % (0-6); HEMATOCRIT 39.4 % (36.0-47.0); HEMOGLOBIN 13.4 g/dL (12.0-15.5); LYMPHOCYTES % (AUTO) 27.6 % (13-45); MEAN CORPUSCULAR HEMOGLOBIN 28.6 pg (27.0-33.4); MEAN CORPUSCULAR VOLUME 84 fl (80-97); MONOCYTES % (AUTO) 9.5 % (3-13); PLATELET COUNT 335 10^3/uL (150-450); RED BLOOD COUNT 4.68 10^6/uL (3.72-5.28); RED CELL DISTRIBUTION WIDTH 13.5 % (11.5-14.0); SEGMENTED NEUTROPHILS % (AUTO) 61.7 % (42-78); TOTAL CELLS COUNTED % (AUTO) 100 %; WHITE BLOOD COUNT 10.8 10^3/uL (4.0-10.5)
[2019-05-26 01:03] LABS: APPEARANCE,URINE SLIGHTLY-CLOUDY; BILIRUBIN,URINE NEGATIVE (NEGATIVE); COLOR,URINE YELLOW; GLUCOSE, URINE NEGATIVE (NEGATIVE); KETONES,URINE NEGATIVE (NEGATIVE); LEUKOCYTE ESTERASE,URINE NEGATIVE (NEGATIVE); NITRITE,URINE NEGATIVE (NEGATIVE); PROTEIN,URINE 30 mg/dL (NEGATIVE); URINE SPECIFIC GRAVITY 1.025; UROBILINOGEN,URINE NEGATIVE mg/dL (<2.0)
[2019-05-26 01:18] LABS: ALBUMIN 4.1 g/dL (3.5-5.0); ALKALINE PHOSPHATASE 65 U/L (38-126); ANION GAP 11 (5-19); ASPARTATE AMINO TRANSFERASE 17 U/L (14-36); BILIRUBIN,DIRECT 0.1 mg/dL (0.0-0.4); BILIRUBIN,TOTAL 0.3 mg/dL (0.2-1.3); BLOOD UREA NITROGEN 10 mg/dL (7-20); CALCIUM 9.3 mg/dL (8.4-10.2); CARBON DIOXIDE 25 mmol/L (22-30); CHLORIDE 104 mmol/L (98-107); GLUCOSE 84 mg/dL (75-110); POTASSIUM 3.8 mmol/L (3.6-5.0); TOTAL PROTEIN 7.6 g/dL (6.3-8.2)
--- NOTE | 2019-05-26 05:34 | RADIOLOGY REPORT (SQ) ---
EXAM DESCRIPTION: US TRANSVAGINAL COMPLETED DATE/TME: 05/26/2019 04:43 CLINICAL HISTORY: 18 years, Female, 8 wk , vaginal bleeding COMPARISON: None. TECHNIQUE: Emergent ultrasound LIMITATIONS: None. FINDINGS: Uterus measures 10.1 x 5.8 x 6.0 cm. There is an intrauterine gestational sac. No yolk sac or pole. Right ovary measures 3.1 x 2.4 x 1.9 cm, left ovary 2.0 x 1.3 x 2.3 cm. Normal flow to each ovary. No adnexal cyst or mass. No free fluid. Current ultrasound age is 7 weeks 3 days based on mean sac diameter IMPRESSION: Intrauterine gestational sac with ultrasound age 7 weeks 3 days. However there is no pole or heart tones. Findings are worrisome for blighted ovum. Close obstetric follow-up recommended. Correlate with beta hCG levels copyright 2010 [employer]- All Rights Reserved
--- NOTE | 2019-05-26 06:04 | ER Document Report ---
ED General - General Chief Complaint: Vaginal Bleeding Stated Complaint: VAGINAL BLEEDING Time Seen by Provider: 05/26/19 04:43 Primary Care Provider: YOHAN HOU MD [Primary Care Provider] - Follow up as needed Notes: 18-year-old G2, P0 female presents with vaginal spotting that started tonight. Patient is approximately 8 weeks . Patient denies any fever, nausea/vomiting, vaginal discharge, abdominal pain, pelvic pain. Patient has had a miscarriage previously which required D&C. TRAVEL OUTSIDE OF THE [place] IN LAST 30 DAYS: No - Related Data Allergies/Adverse Reactions: red dye Allergy (Verified 10/24/18 10:16) Home Medications: none Past Medical History - Social History Smoking Status: Never Smoker Frequency of alcohol use: None Drug Abuse: None Family History: Reviewed & Not Pertinent Patient has suicidal ideation: No Patient has homicidal ideation: No - Past Medical History Cardiac Medical History: Denies: Hx Coronary Artery Disease, Hx Heart Attack, Hx Hypertension Pulmonary Medical History: Denies: Hx Asthma, Hx Bronchitis, Hx COPD, Hx Pneumonia Neurological Medical History: Denies: Hx Cerebrovascular Accident, Hx Seizures Renal/ Medical History: Denies: Hx Peritoneal Dialysis Musculoskeletal Medical History: Denies Hx Arthritis Past Surgical History: Reports: Hx Gynecologic Surgery - d&c, Hx Orthopedic Surgery - bilateral foot toe removal, left forearm, Hx Vascular Surgery - L ARM - Immunizations Immunizations up to date: Yes Hx Diphtheria, Pertussis, Tetanus Vaccination: Yes Review of Systems - Review of Systems Notes: Constitutional: Negative for fever. HENT: Negative for sore throat. Eyes: Negative for visual changes. Cardiovascular: Negative for chest pain. Respiratory: Negative for shortness of breath. Gastrointestinal: Negative for abdominal pain, vomiting or diarrhea. Genitourinary: Positive for vaginal spotting. Negative for dysuria. Musculoskeletal: Negative for back pain. Skin: Negative for rash. Neurological: Negative for headaches, weakness or numbness. 10 point ROS negative except as marked above and in HPI. Physical Exam - Vital signs Vitals: Temp Pulse Resp BP Pulse Ox 98.8 F 89 16 131/82 H 98 05/26/19 00:22 05/26/19 00:22 05/26/19 00:22 05/26/19 00:22 05/26/19 00:22 - Notes Notes: GENERAL: Well-appearing, well-nourished and in no acute distress. HEAD: Atraumatic, normocephalic. EYES: Pupils equal round and reactive to light, extraocular movements intact, sclera anicteric, conjunctiva are normal. ENT: TMs normal, nares patent, oropharynx clear without exudates. Moist mucous membranes. NECK: Normal range of motion, supple without lymphadenopathy or JVD. LUNGS: Breath sounds clear to auscultation bilaterally and equal. No wheezes rales or rhonchi. HEART: Regular rate and rhythm without murmurs, rubs or gallops. ABDOMEN: Soft, nontender. No guarding, no rebound. No masses appreciated. : DECLINED EXTREMITIES: Normal range of motion, no pitting or edema. No clubbing or cyanosis. NEUROLOGICAL: Cranial nerves II through XII grossly intact. Normal speech, normal gait. PSYCH: Normal mood, normal affect. SKIN: Warm, Dry, normal turgor, no rashes or lesions noted. Course - Re-evaluation Re-evalutation: 05/26/19 18-year-old G2, P0 approximately 8 weeks female presents for vaginal spotting that started tonight. Patient denies fever, abdominal pain, vaginal discharge, pelvic pain. Abdomen soft nontender. Pelvic exam declined. Lab work is otherwise unremarkable. Beta hCG is 11,607. Ultrasound was ordered. Blood type is B+ so no RhoGam is required. 05/26/19 06:54 ultrasound is concerning for missed miscarriage. There is a gestational sac however there is no pole or heart tones. Results were printed out and given to patient. Discussed results with patient and recommendation for close follow-up with [facility]. Patient to follow-up with [facility] ROOM CLERK in the next few days and to either follow-up with OB or here at ER for repeat beta-hCG in 48 hours. Strict return precautions given. Patient voices understanding and agrees with plan of care. - Vital Signs Vital signs: Temp Pulse Resp BP Pulse Ox 98.8 F 89 16 131/82 H 98 05/26/19 00:24 05/26/19 00:22 05/26/19 00:24 05/26/19 00:22 05/26/19 00:24 - Laboratory Result Diagrams: 05/26/19 00:40 05/26/19 00:40 Laboratory results interpreted by me: 12/05/26/19 05/26/19 00:40 00:40 00:40 WBC 10.8 H Beta HCG, Quant 16129.00 H Urine Protein 30 H Urine Blood MODERATE H Discharge - Discharge Clinical Impression: Threatened Condition: Stable Disposition: HOME, SELF-CARE Instructions: Threatened Miscarriage ([facility]), Repeat Blood Test ([facility]), [facility], Bleeding During Early ([facility]) Additional Instructions: Your beta-hCG ( hormone) was 11,607 today. Your ultrasound was concerning for a missed miscarriage. Please call your COUNT ROOM CLERK today for follow- up appointment in the next 2 to 3 days. Please go to your COUNT ROOM CLERK or to ER for repeat beta-hCG in 48 hours. Return immediately to ER for any worsening symptoms, including worsening vaginal bleeding, pelvic pain, abdominal pain, na usea/vomiting, fevers, or any other symptoms that are concerning to you. Referrals: YOHAN HOU MD [Primary Care Provider] - Follow up tomorrow
[2019-05-26 07:23] VITALS: BP 129/76
== END 2019-05-26 07:22 | disposition home or self-care (01) ==
LOC: ER 00:07
DX: O20.0 Threatened abortion (principal); O26.859 Spotting complicating pregnancy, unspecified trimester; Z3A.00 Weeks of gestation of pregnancy not specified; Z91.048 Other nonmedicinal substance allergy status
CPT/HCPCS: 36415; 76817; 80053; 81001; 83690; 84702; 85025; 86900; 86901; 93976; 99284

== ENCOUNTER → 2019-06-20 | Outpatient (CLI) | payer MEDICAID | LOC: OD 14:08 | PROVIDERS: ATTEND Otolaryngology | DX: J30.9 Allergic rhinitis, unspecified (principal) | CPT/HCPCS: 36415; 82785; 86003 ==

== ENCOUNTER 2019-08-24 02:52 | Emergency (ER) | payer MEDICAID ==
[2019-08-24 03:36] LABS: A TYPE INFLUENZA AG NEGATIVE (NEGATIVE); B INFLUENZA AG NEGATIVE (NEGATIVE)
[2019-08-24 04:53] VITALS: BP 116/79
--- NOTE | 2019-08-25 13:50 | ER Document Report ---
Entered by BOONE MAJANO SCRIBE 08/24/19 0428 Acting as scribe for:EMILE DE JESUS IV, MD ED General - General Chief Complaint: Flu Symptoms Stated Complaint: DIFFICULTY BREATHING,EARACHE,RUNNY NOSE Time Seen by Provider: 08/24/19 04:24 Primary Care Provider: MARIAN LOJA DO [Primary Care Provider] - Follow up as needed Mode of Arrival: Ambulatory Information source: Patient Notes: This 19 year old female patient with no significant past medical history presents to the ED today with complaints of sudden onset flu-like symptoms that began at 1999 last night. Patient reports nasal congestion/discharge, headache, productive cough, mild shortness of breath, and plugged ears. Patient denies history of asthma. TRAVEL OUTSIDE OF THE [place] IN LAST 30 DAYS: No - Related Data Allergies/Adverse Reactions: red dye Allergy (Verified 10/24/18 10:16) Past Medical History - General Information source: Patient - Social History Smoking Status: Never Smoker Cigarette use (# per day): No Chew tobacco use (# tins/day): No Smoking Education Provided: No Family History: Reviewed & Not Pertinent Patient has suicidal ideation: No Patient has homicidal ideation: No Past Surgical History: Reports: Hx Dilation and Curettage, Hx Orthopedic Surgery - bilateral foot toe removal, left forearm, Hx Vascular Surgery - L ARM - Immunizations Immunizations up to date: Yes Hx Diphtheria, Pertussis, Tetanus Vaccination: Yes Review of Systems - Review of Systems Constitutional: No symptoms reported EENT: See HPI, Nose congestion, Nose discharge, Other - Plugged ears Cardiovascular: No symptoms reported Respiratory: See HPI, Cough, Short of breath Gastrointestinal: No symptoms reported Genitourinary: No symptoms reported Female Genitourinary: No symptoms reported Musculoskeletal: No symptoms reported Skin: No symptoms reported Hematologic/Lymphatic: No symptoms reported Neurological/Psychological: See HPI, Headaches -: Yes All other systems reviewed and negative Physical Exam - Vital signs Vitals: Temp Pulse Resp BP Pulse Ox 98.6 F 112 H 20 131/87 H 98 08/24/19 03:10 08/24/19 03:10 08/24/19 03:10 08/24/19 03:10 08/24/19 03:10 - General General appearance: Appears well, Alert - HEENT Head: Normocephalic, Atraumatic Eyes: Normal Pupils: PERRL Nasal: Clear rhinorrhea - Respiratory Respiratory status: No respiratory distress Chest status: Nontender Breath sounds: Normal Chest palpation: Normal - Cardiovascular Rhythm: Regular Heart sounds: Normal auscultation Murmur: No Friction rub: No Gallop: None auscultated - Abdominal Inspection: Normal Distension: No distension Bowel sounds: Normal Tenderness: Nontender - Abdomen soft Organomegaly: No organomegaly - Back Back: Normal, Nontender - Extremities General upper extremity: Normal inspection General lower extremity: Normal inspection - Neurological Neuro grossly intact: Yes - Psychological Associated symptoms: Normal affect, Normal mood - Skin Skin Temperature: Warm Skin Moisture: Dry Skin Color: Normal Course - Re-evaluation Re-evalutation: 08/24/19 04:33 Results of ED MSE discussed with patient. All questions were answered prior to discharge. Emergency signs and symptoms, reasons to return to the emergency department discussed with patient. - Vital Signs Vital signs: Temp Pulse Resp BP Pulse Ox 97.9 F 107 H 16 116/79 100 08/24/19 04:53 08/24/19 04:53 08/24/19 04:53 08/24/19 04:53 08/24/19 04:53 Discharge - Discharge Clinical Impression: URI (upper respiratory infection) Qualifiers: URI type: unspecified URI Qualified Code(s): J06.9 - Acute upper respiratory infection, unspecified Condition: Good Disposition: HOME, SELF-CARE Instructions: Use of Azio-Mtc-Xkwnfrl Ibuprofen ([facility]) Additional Instructions: Return to the Emergency Department without delay if any worse. HOME CARE INSTRUCTIONS & INFORMATION: Thank you for choosing us for your medical needs. We hope you're satisfied with the care you received. After you leave, you must properly care for your problem and, at the same time, observe its progress. Any condition can change. Some illnesses can change rapidly over hours or days. If your condition worsens, return to the Emergency Department or see your physician promptly. ABOUT YOUR X-RAYS AND EKG'S: If you had an EKG or X-rays taken, they have been read by the Emergency Physician. The X-rays and EKG's will also be read by a Radiologist or Car Painter within 24 hours. If discrepancies are noted, you will be notified by telephone. Please be certain the ED has a correct telephone number & address where you can be reached. Also, realize that some fractures or abnormalities do not show up on initial X-rays. If your symptoms continue, see your physician. ABOUT YOUR LABORATORY TEST: If you had laboratory tests, the results have been reviewed by the Emergency Physician. Some test results (for example cultures) may not be available for several days. You will be contacted if any test result shows you need additional treatment. Please be certain the ED has a correct telephone number and address where you can be reached. ABOUT YOUR MEDICATIONS: You will receive instructions on how to take your medicine on the prescription label you receive. Additional information may be provided by the Pharmacy. If you have questions afterwards, call the ED for clarification or further instructions. Some prescribed medications may cause drowsiness. Do not perform tasks such as driving a car or operating machinery without consulting your Pharmacist. If you feel you need a refill of pain medication, your condition will need re-evaluation. Please do not call for a refill of any medication. ABOUT YOUR SIGNATURE: Signature of this document acknowledges to followin. Understanding that you received emergency treatment and that you may be released before al medical problems are known or treated. Please be certain the ED has a correct phone number & address where you can be reached. 2. Acknowledgement that you will arrange for follow-up care as recommended. 3. Authorization for the Emergency Physician to provide information to your follow-up Physician in order to maximize your care. AT ANY TIME, IF YOUR SYMPTOMS CHANGE SIGNIFICANTLY OR WORSEN OR YOU DEVELOP NEW SYMPTOMS, RETURN TO THE EMERGENCY DEPARTMENT IMMEDIATELY FOR RE-EVALUATION. OUR GOAL IS TO PROVIDE EXCELLENT MEDICAL CARE! WE HOPE THAT WE HAVE MET YOUR EXPECTATIONS DURING YOUR EMERGENCY DEPARTMENT VISIT AND THAT YOU FEEL YOU HAVE RECEIVED EXCELLENT CARE! Upper Respiratory Illness You have a viral infection of the respiratory passages -- a "cold." This common infection causes nasal congestion, drainage, and often sore throat and cough. It is caused by a virus and is highly contagious. The disease usually lasts a week or more, though the worst symptoms are usually over in 3 or 4 days. There is no "cure" for the viral infection -- it must run its course. If there is a complication, such as bacterial infection in the nose, sinuses, middle ear, or bronchial tubes, antibiotics may be required, but antibiotics won't affect the virus. If you smoke, you should STOP!! Drink plenty of fluids. A humidifier may help. An expectorant medication or decongestant may make you more comfortable. Use acetaminophen or ibuprofen for fever or aches. See the doctor if fever persists over two or three days, if there is any significant worsening of your symptoms, or if you simply fail to improve as expected. Forms: Return to Work Referrals: MARIAN LOJA, DO [Primary Care Provider] - Follow up as needed I personally performed the services described in the documentation, reviewed and edited the documentation which was dictated to the scribe in my presence, and it accurately records my words and actions.
== END 2019-08-24 04:53 | disposition home or self-care (01) ==
LOC: ER 02:52
DX: J06.9 Acute upper respiratory infection, unspecified (principal); R06.00 Dyspnea, unspecified; J34.89 Other specified disorders of nose and nasal sinuses; R51 Headache; R06.02 Shortness of breath
CPT/HCPCS: 87804; 99283

== ENCOUNTER 2019-11-07 21:40 | Emergency (ER) | payer OTHER, MEDICAID ==
--- NOTE | 2019-11-07 22:44 | ER Document Report ---
ED Medical Screen (RME) - General Chief Complaint: Allergic Reaction Stated Complaint: POSSIBLE ALLERGIC REATION Time Seen by Provider: 11/07/19 22:40 Primary Care Provider: MARIAN LOJA DO [Primary Care Provider] - Follow up as needed Mode of Arrival: Ambulatory Notes: Patient is a 10-year-old female who comes emergency room complaining of allergic reaction. Patient states that since she is gone back to work 09 October she is noticed that she has a hive type presentation when she goes to work. She states that she has been dealing with it but tonight when she went into work and noticed that she was getting it again she vomited once. Patient is also stated that she has some shortness of breath. She does admit to smoking a pack cigarettes a day. Patient also complains of just not feeling right and vomiting the time next 1. She also states that she was sent here by work this stated that she needed to be evaluated. Patient states that she does wear coverings over her arms that she wears rubber gloves but the oil still leaks through her rubber gloves. Most of the allergic reaction she states is on the palmar side of the forearms currently nothing is seen. Patient is well-nourished well-developed 19-year-old female no apparent distress on physical exam. Lungs: Bilateral breath sounds but sounds increased clear auscultation. Cardiac: Regular rate and rhythm without murmurs Abdomen in a sitting position nontender to palpate bowel sounds present all 4 quads. Area of concern is her left and right anterior wrist currently no rashes seen. I have greeted and performed a rapid initial assessment of this patient. A comprehensive ED assessment and evaluation of the patient, analysis of test results and completion of the medical decision-making process will be conducted by additional ED provider. TRAVEL OUTSIDE OF THE [place] IN LAST 30 DAYS: No - Related Data Allergies/Adverse Reactions: red dye Allergy (Verified 10/24/18 10:16) Past Medical History - Past Medical History Cardiac Medical History: Denies: Hx Coronary Artery Disease, Hx Heart Attack, Hx Hypertension Pulmonary Medical History: Denies: Hx Asthma, Hx Bronchitis, Hx COPD, Hx Pneumonia Neurological Medical History: Denies: Hx Cerebrovascular Accident, Hx Seizures Renal/ Medical History: Denies: Hx Peritoneal Dialysis Musculoskeltal Medical History: Denies Hx Arthritis Past Surgical History: Reports: Hx Dilation and Curettage, Hx Gynecologic Surgery - d&c, Hx Orthopedic Surgery - bilateral foot toe removal, left forearm, Hx Vascular Surgery - L ARM - Immunizations Immunizations up to date: Yes Hx Diphtheria, Pertussis, Tetanus Vaccination: Yes Physical Exam - Vital signs Vitals: Temp Pulse Resp BP Pulse Ox 98.4 F 98 16 147/90 H 99 11/07/19 21:58 11/07/19 21:58 11/07/19 21:58 11/07/19 21:58 11/07/19 21:58 Course - Vital Signs Vital signs: Temp Pulse Resp BP Pulse Ox 98.4 F 98 16 147/90 H 99 11/07/19 22:35 11/07/19 21:58 11/07/19 21:58 11/07/19 21:58 11/07/19 21:58 Doctor's Discharge - Discharge Referrals: MARIAN LOJA DO [Primary Care Provider] - Follow up as needed
--- NOTE | 2019-11-07 23:09 | RADIOLOGY REPORT (SQ) ---
EXAM DESCRIPTION: XR CHEST 2 VIEWS COMPLETED DATE/TME: 11/07/2019 22:45 CLINICAL HISTORY: Short of breath COMPARISON: None. FINDINGS: Frontal and lateral views of the chest. Cardiomediastinal silhouette: Normal size and contour. Lungs: No consolidation, pneumothorax, or pleural effusion. Bones: No acute osseous abnormality. Upper abdomen: No abnormality identified. IMPRESSION: 1. No acute pulmonary process identified.
--- NOTE | 2019-11-08 00:14 | ER Document Report ---
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 She does wear gloves at work and is in contact with oils which seem to be on the skin even after taking the gloves off. States that she has had allergy testing in the past with her ENT physician which only showed sensitivity to ragweed. Patient states that occasionally she does have some shortness of breath no fevers no cough. No wheezing. The shortness of breath is not associated with a rash. ROS: See HPI - all other systems were reviewed and are otherwise negative Constitutional: no fever Eyes: no drainage, no blurred vision ENT: no runny nose, no sore throat Cardiovascular: no chest pain Resp: + SOB, no cough GI: no vomiting, no diarrhea, no abdominal pain : no dysuria Integumentary: + rash Allergy: + hives Musculoskeletal: no extremity pain or swelling Neurological: no numbness/tingling, no weakness MEDICATIONS: I agree with the patient medications as charted by the RN. ALLERGIES: I agree with the allergies as charted by the RN. PAST MEDICAL HISTORY/PAST SURGICAL HISTORY: Reviewed and agree as charted by RN. SOCIAL HISTORY: Reviewed and agree as charted by RN. FAMILY HISTORY: No significant familial comorbid conditions directly related to patient complaint EXAM: Reviewed vital signs as charted by RN. CONSTITUTIONAL: Alert and oriented and responds appropriately to questions. Well-appearing; well-nourished HEAD: Normocephalic; atraumatic EYES: PERRL; Conjunctivae clear, sclerae non-icteric ENT: normal nose; no rhinorrhea; moist mucous membranes; pharynx without lesions noted, no uvula edema or deviation, no tonsillar hypertrophy, phonation normal NECK: Supple without meningismus; non-tender; no cervical lymphadenopathy, no masses CARD: RRR; no murmurs, no clicks, no rubs, no gallops; symmetric distal pulses RESP: Normal chest excursion without splinting or tachypnea; breath sounds clear and equal bilaterally; no wheezes, no rhonchi, no rales, pulse oximetry 99% on room air not hypoxic ABD/GI: Normal bowel sounds; non-distended; soft, non-tender, no rebound, no guarding; no palpable organomegaly or masses. BACK: The back appears normal and is non-tender to palpation, there is no CVA tenderness EXT: Normal ROM in all joints; non-tender to palpation; no cyanosis, no effusions, no edema SKIN: Normal color for age and race; warm; dry; good turgor; no acute lesions noted NEURO: Moves all extremities equally; Motor and sensory function intact PSYCH: The patient's mood and manner are appropriate. Grooming and personal hygiene are appropriate. MDM: 19-year-old obese female who smokes a pack of cigarettes a day presenting with a pruritic rash on the volar aspects of the wrists at the edges of where the gloves cover. Rash goes away when she is not at work or when she goes home. She is taken no medications for the itching. Does not have rash anywhere else. Shortness of breath does not appear to be related to the rash. Likely because she is obese and smokes a pack of cigarettes a day. Did discuss smoking cessation with her. She is not dyspneic or short of breath at this time. She does not of the rash at this time but does have pictures on her phone of the rash which suggest more of a contact dermatitis than a true urticaria. Will have patient take Zyrtec for itching, she may use hydrocortisone cream on this if needed follow-up with her PCP TRAVEL OUTSIDE OF THE [place] IN LAST 30 DAYS: No - Related Data Allergies/Adverse Reactions: red dye Allergy (Verified 10/24/18 10:16) Past Medical History - Social History Smoking Status: Current Every Day Smoker Family History: Reviewed & Not Pertinent Patient has homicidal ideation: No - Past Medical History Cardiac Medical History: Denies: Hx Coronary Artery Disease, Hx Heart Attack, Hx Hypertension Pulmonary Medical History: Denies: Hx Asthma, Hx Bronchitis, Hx COPD, Hx Pneumonia Neurological Medical History: Denies: Hx Cerebrovascular Accident, Hx Seizures Renal/ Medical History: Denies: Hx Peritoneal Dialysis Musculoskeletal Medical History: Denies Hx Arthritis Past Surgical History: Reports: Hx Dilation and Curettage, Hx Gynecologic Surgery - d&c, Hx Orthopedic Surgery - bilateral foot toe removal, left forearm, Hx Vascular Surgery - L ARM - Immunizations Immunizations up to date: Yes Hx Diphtheria, Pertussis, Tetanus Vaccination: Yes Physical Exam - Vital signs Vitals: Temp Pulse Resp BP Pulse Ox 98.4 F 98 16 147/90 H 99 11/07/19 21:58 11/07/19 21:58 11/07/19 21:58 11/07/19 21:58 11/07/19 21:58 Course - Vital Signs Vital signs: Temp Pulse Resp BP Pulse Ox 97.9 F 87 14 140/86 H 99 11/07/19 23:53 11/07/19 23:53 11/07/19 23:53 11/07/19 23:53 11/07/19 23:53 Discharge - Discharge Clinical Impression: Contact dermatitis Qualifiers: Contact dermatitis type: irritant Contact dermatitis trigger: other chemical product Qualified Code(s): L24.5 - Irritant contact dermatitis due to other chemical products Condition: Stable Disposition: HOME, SELF-CARE Additional Instructions: Take Zyrtec 10 mg by mouth daily. You may use 1% hydrocortisone cream on the rash to help with the itching and the rash should it recur. It is likely an irritant from a chemical or the gloves at work. Follow-up with your primary care provider for reevaluation of your symptoms. Stop smoking Referrals: MARIAN LOJA DO [Primary Care Provider] - Follow up as needed
[2019-11-08 00:48] VITALS: BP 120/77
== END 2019-11-08 00:48 | disposition home or self-care (01) ==
LOC: ER 21:40
DX: T65.91XA Toxic effect of unspecified substance, accidental (unintentional), initial encounter (principal); L24.5 Irritant contact dermatitis due to other chemical products; Y99.0 Civilian activity done for income or pay; Z91.048 Other nonmedicinal substance allergy status; R06.02 Shortness of breath; E66.9 Obesity, unspecified; F17.210 Nicotine dependence, cigarettes, uncomplicated
CPT/HCPCS: 71046; 99283

== ENCOUNTER 2019-11-25 12:17 | Emergency (ER) | payer MEDICAID ==
--- NOTE | 2019-11-25 13:39 | ER Document Report ---
ED Medical Screen (RME) - General Chief Complaint: Abdominal Cramping Stated Complaint: ABDOMINAL CRAMPING Time Seen by Provider: 11/25/19 13:34 Primary Care Provider: MARIAN LOJA DO [Primary Care Provider] - Follow up as needed Notes: HPI: 19-year-old female presenting to the emergency department complaining of pelvic pain and cramping over the last week no vaginal bleeding or discharge. Patient has had nausea in the mornings, took a test at home that was - 2 to 3 days ago. Does report history of ovarian cyst in the past PHYSICAL EXAMINATION: Mild tenderness through the suprapubic and left pelvis on palpation I have greeted and performed a rapid initial assessment of this patient. A comprehensive ED assessment and evaluation of the patient, analysis of test results and completion of medical decision making process will be conducted by an additional ED providers. TRAVEL OUTSIDE OF THE [place] IN LAST 30 DAYS: No - Related Data Allergies/Adverse Reactions: red dye Allergy (Verified 10/24/18 10:16) Past Medical History - Past Medical History Cardiac Medical History: Denies: Hx Coronary Artery Disease, Hx Heart Attack, Hx Hypertension Pulmonary Medical History: Denies: Hx Asthma, Hx Bronchitis, Hx COPD, Hx Pneumonia Neurological Medical History: Denies: Hx Cerebrovascular Accident, Hx Seizures Renal/ Medical History: Denies: Hx Peritoneal Dialysis Musculoskeltal Medical History: Denies Hx Arthritis Past Surgical History: Reports: Hx Dilation and Curettage, Hx Gynecologic Surgery - d&c, Hx Orthopedic Surgery - bilateral foot toe removal, left forearm, Hx Vascular Surgery - L ARM - Immunizations Immunizations up to date: Yes Hx Diphtheria, Pertussis, Tetanus Vaccination: Yes Physical Exam - Vital signs Vitals: Temp Pulse Resp BP Pulse Ox 99.0 F 73 20 115/72 100 11/25/19 13:10 11/25/19 13:10 11/25/19 13:10 11/25/19 13:10 11/25/19 13:10 Course - Vital Signs Vital signs: Temp Pulse Resp BP Pulse Ox 99.0 F 73 20 115/72 100 11/25/19 13:35 11/25/19 13:10 11/25/19 13:10 11/25/19 13:10 11/25/19 13:10 Doctor's Discharge - Discharge Referrals: MARIAN LOJA DO [Primary Care Provider] - Follow up as needed
--- NOTE | 2019-11-25 14:54 | RADIOLOGY REPORT (SQ) ---
EXAM DESCRIPTION: U/S NON OB PEL TV W/DOPPLER IMAGES COMPLETED DATE/TIME: 11/25/2019 2:38 pm REASON FOR STUDY: left pelvic pain COMPARISON: None. TECHNIQUE: Dynamic and static grayscale images acquired of the pelvis via transvaginal approach and recorded on PACS. Additional selected color Doppler and spectral images recorded. LIMITATIONS: None. FINDINGS: UTERUS: Normal in size and contour measuring 7.3 x 4.3 x 3.5 cm ENDOMETRIAL STRIPE: Endometrial stripe is visualized measuring 7 mm. No focal thickening. CERVIX: No nabothian cysts. RIGHT OVARY AND DOPPLER: Normal size measuring 3.3 x 1.9 x 2.1 cm. No worrisome masses. Resolution o f previously seen follicle. Normal arterial vascular flow without evidence for torsion. LEFT OVARY AND DOPPLER: Normal size measuring 4.6 x 2.0 x 1.9 cm. No worrisome masses. Resolution of previously seen follicle. Normal arterial vascular flow without evidence for torsion. FREE FLUID: Trace fluid within the pelvic cul-de-sac, likely physiologic. OTHER: No other significant finding. IMPRESSION: NORMAL TRANSVAGINAL PELVIC ULTRASOUND. TECHNICAL DOCUMENTATION: JOB ID: [id number] 2010 [employer]- All Rights Reserved Rev-10/26 Reading location - IP/workstation name: [email or web address]
[2019-11-25 15:18] LABS: APPEARANCE,URINE SLIGHTLY-CLOUDY; BILIRUBIN,URINE NEGATIVE (NEGATIVE); COLOR,URINE YELLOW; GLUCOSE, URINE NEGATIVE (NEGATIVE); KETONES,URINE NEGATIVE (NEGATIVE); LEUKOCYTE ESTERASE,URINE TRACE (NEGATIVE); NITRITE,URINE NEGATIVE (NEGATIVE); PROTEIN,URINE NEGATIVE (NEGATIVE); URINE SPECIFIC GRAVITY 1.029; UROBILINOGEN,URINE NEGATIVE mg/dL (<2.0)
[2019-11-25] MEDS ORDERED: MORPHINE SULFATE 10 MG/ML INJ IV ONE (18:08)
[2019-11-25] MEDS ORDERED: ONDANSETRON HCL INJ/PF 4 MG/2 ML SDV IV ONE (18:08)
--- NOTE | 2019-11-25 18:09 | ER Document Report ---
Entered by DADA CIFUENTES SCRIBE 11/25/19 [id number] Acting as scribe for:CHIARA MARRUFO MD ED GI/ - General Chief Complaint: Nausea/Vomiting/Diarrhea Stated Complaint: ABDOMINAL CRAMPING Time Seen by Provider: 11/25/19 13:34 Primary Care Provider: HILLARY SCHWARTZ DO [Primary Care Provider] - Follow up as needed Mode of Arrival: Ambulatory Information source: Patient Notes: This 19 year old female patient presents to the emergency department today with complaints of left sided abdominal pain with associated nausea, vomiting, and diarrhea. Patient states that she has diarrhea about twice a day and only vomits in the morning. Patient's LMP was 10/24. Patient mentions a "little cough" as well. Patient denies fevers. TRAVEL OUTSIDE OF THE [place] IN LAST 30 DAYS: No - Related Data Allergies/Adverse Reactions: red dye Allergy (Verified 10/24/18 10:16) Past Medical History - General Information source: Patient - Social History Smoking Status: Current Some Day Smoker Cigarette use (# per day): Yes Frequency of alcohol use: None Drug Abuse: None Lives with: Family Family History: Reviewed & Not Pertinent Patient has homicidal ideation: No Past Surgical History: Reports: Hx Dilation and Curettage, Hx Gynecologic Surgery - d&c, Hx Orthopedic Surgery - bilateral foot toe removal, left forearm, Hx Vascular Surgery - L ARM - Immunizations Immunizations up to date: Yes Hx Diphtheria, Pertussis, Tetanus Vaccination: Yes Review of Systems - Review of Systems Constitutional: No symptoms reported EENT: No symptoms reported Cardiovascular: No symptoms reported Respiratory: No symptoms reported Gastrointestinal: See HPI, Abdominal pain, Diarrhea, Nausea, Vomiting Genitourinary: No symptoms reported Female Genitourinary: No symptoms reported Musculoskeletal: No symptoms reported Skin: No symptoms reported Hematologic/Lymphatic: No symptoms reported Neurological/Psychological: No symptoms reported -: Yes All other systems reviewed and negative Physical Exam - Vital signs Vitals: Temp Pulse Resp BP Pulse Ox 99.0 F 73 20 115/72 100 11/25/19 13:10 11/25/19 13:10 11/25/19 13:10 11/25/19 13:10 11/25/19 13:10 - General General appearance: Appears well, Alert In distress: None - HEENT Head: Normocephalic, Atraumatic Eyes: Normal Pupils: PERRL - Respiratory Respiratory status: No respiratory distress Breath sounds: Normal - Cardiovascular Rhythm: Regular - Abdominal Inspection: Morbidly Obese Tenderness: Tender - The pannus in the right lower quadrant is exquisitely tender but does not appear inflamed. The pannus in the left lower quadrant is slightly tender. Palpating below the pannus on either side causes severe pain in the pelvic region. - Genitourinary External exam: Normal Speculum exam: Vaginal discharge - White creamy vaginal discharge. Vaginal bleeding: None Bimanuel exam: Cervical motion tender, Adnexal tenderness - Uterus and right adnexa are exquisitely tender, left adnexa is not very tender. - Back Back: Normal - Extremities General upper extremity: Other - Both hands have polydactyly with the extra fifth digits only small nubs of tissue. General lower extremity: Normal inspection - Neurological Neuro grossly intact: Yes - Psychological Associated symptoms: Normal affect, Normal mood - Skin Skin Temperature: Warm Skin Moisture: Dry Skin Color: Normal Course - Vital Signs Vital signs: Temp Pulse Resp BP Pulse Ox 99.0 F 73 20 115/72 100 11/25/19 13:35 11/25/19 13:10 11/25/19 13:10 11/25/19 13:10 11/25/19 13:10 - Laboratory Result Diagrams: 11/25/19 18:25 11/25/19 18:25 Laboratory results interpreted by me: 11/25/19 11/25/19 14:40 18:25 Sodium 135.9 L Ur Leukocyte Esterase TRACE H Discharge - Discharge Clinical Impression: Pelvic inflammatory disease (PID), Yeast vaginitis Condition: Stable Disposition: HOME, SELF-CARE Additional Instructions: Pelvic Inflammatory Disease: You have been diagnosed as having pelvic inflammatory disease (PID). This is an infection of the fallopian tubes and surrounding areas of the pelvis. Symptoms are usually pelvic pain and discharge. The infection can do permanent damage to the tubes and ovaries. It should be taken very seriously. Treatment is antibiotics, which may be given by vein or by injection if the infection seems serious. It's important that you receive all recommended medication. Condoms help prevent spread of this infection to others. Because this infection is spread sexually, it's important that your sexual partner be checked before resuming sexual relations. If a culture shows gonorrhea or chlamydia organisms, the law requires that this be reported to the health department. Call the doctor or return at once if you develop increasing fever, rash, severe pelvic pain, vaginal bleeding (other than your period), or problems with your bladder or bowels. Vaginal Yeast Infection: You have evidence of a yeast infection -- called "marquita." A vaginal yeast infection often causes itching and discharge. While not dangerous, it can be very unpleasant. A yeast infection often follows the use of powerful antibiotics. It is more likely to occur in diabetics. The treatment now is usually a single pill of Diflucan, but also an antifungal cream or suppository may be used for a few days. You do not need to avoid sexual intercourse. Recurrences are common. You can make a recurrence less likely by wearing cotton underwear and avoiding tight clothing. For mild recurrences, you can try tesl-xxa-mpddjmp creams or suppositories that are made specifically for yeast. If the symptoms do not resolve, you should follow up for re-examination. Sometimes treatment of the sexual partner is necessary if infections are recurrent. Take the Doxycycline as prescribed for the pelvic infection. The use 1 of the shsb-esw-flcnfmo vaginal yeast preparations such as Monistat 3 or Monistat 7. Take the pain medication as dispensed if needed tonight and tomorrow. Take ibuprofen 600 mg every 6 hours for the next few days if needed for pelvic pain. Drink plenty of fluids throughout the day in the evening. Follow-up with your primary care provider or with [facility] if not improving. RETURN TO THE EMERGENCY ROOM IF ANY NEW OR WORSENING SYMPTOMS. Prescriptions: Doxycycline Hyclate 100 mg PO BID #20 tablet. Referrals: HILLARY SCHWARTZ, [Primary Care Provider] - Follow up as needed [facility] [Provider Group] - Follow up as needed I personally performed the services described in the documentation, reviewed and edited the documentation which was dictated to the scribe in my presence, and it accurately records my words and actions.
[2019-11-25 18:46] LABS: ABSOLUTE BASOPHILS # (AUTO) 0.1 10^3/uL (0.0-0.2); ABSOLUTE EOSINOPHILS # (AUTO) 0.2 10^3/uL (0.0-0.6); ABSOLUTE LYMPHOCYTES (AUTO) 3.1 10^3/uL (0.5-4.7); ABSOLUTE MONOCYTES (AUTO) 0.7 10^3/uL (0.1-1.4); ABSOLUTE NEUT (AUTO) 4.9 10^3/uL (1.7-8.2); BASOPHILS % (AUTO) 0.7 % (0-2); EOSINOPHILS % (AUTO) 1.8 % (0-6); HEMATOCRIT 42.5 % (36.0-47.0); HEMOGLOBIN 14.3 g/dL (12.0-15.5); LYMPHOCYTES % (AUTO) 34.6 % (13-45); MEAN CORPUSCULAR HEMOGLOBIN 28.3 pg (27.0-33.4); MEAN CORPUSCULAR HGB CONC 33.5 g/dL (32.0-36.0); MEAN CORPUSCULAR VOLUME 84 fl (80-97); MONOCYTES % (AUTO) 7.7 % (3-13); PLATELET COUNT 296 10^3/uL (150-450); RED BLOOD COUNT 5.03 10^6/uL (3.72-5.28); SEGMENTED NEUTROPHILS % (AUTO) 55.2 % (42-78); TOTAL CELLS COUNTED % (AUTO) 100 %
[2019-11-25] MEDS ORDERED: CEFTRIAXONE 1 GM/D5W RTU 1 GM/50 ML RTUPB IV ONE (18:47)
[2019-11-25] MEDS ORDERED: KETOROLAC TROMETHAMINE INJ/PF 30 MG/1 ML SDV IV ONE (18:48)
[2019-11-25 19:01] LABS: ALBUMIN 4.4 g/dL (3.5-5.0); ALKALINE PHOSPHATASE 73 U/L (38-126); ANION GAP 5 (5-19); ASPARTATE AMINO TRANSFERASE 22 U/L (14-36); BILIRUBIN,TOTAL 0.3 mg/dL (0.2-1.3); BLOOD UREA NITROGEN 11 mg/dL (7-20); CALCIUM 9.4 mg/dL (8.4-10.2); CARBON DIOXIDE 29 mmol/L (22-30); CHLORIDE 102 mmol/L (98-107); GLUCOSE 86 mg/dL (75-110); POTASSIUM 4.1 mmol/L (3.6-5.0); TOTAL PROTEIN 7.7 g/dL (6.3-8.2)
[2019-11-25 19:03] LABS: BACTERIA (WET MOUNT) 3+ BACTERIA SEEN; EPITHELIALS (WET MOUNT) 3+ EPITHELIALS SEEN; T.VAGINALIS (WET MOUNT) NO TRICHOMONAS SEEN; WBCS (WET MOUNT) 1+ WBCS SEEN; YEAST (WET MOUNT) YEAST SEEN
[2019-11-25] MEDS ORDERED: DOXYCYCLINE HYCLATE 100 MG TABLET PO ONE (19:29)
[2019-11-25] MEDS ORDERED: HYDROCODONE/ACETAMINOPHEN 5-325 MG (6 TAB/ER DISP) PO PRN (19:32)
[2019-11-25 20:17] VITALS: BP 134/64
[2019-11-25 20:33] LABS: CHLAM PCR NOT DETECTED (NOT DETECT)
== END 2019-11-25 20:00 | disposition home or self-care (01) ==
LOC: ER 12:17
DX: N73.9 Female pelvic inflammatory disease, unspecified (principal); B37.3 Candidiasis of vulva and vagina; R11.2 Nausea with vomiting, unspecified; R19.7 Diarrhea, unspecified; R05 Cough; R10.9 Unspecified abdominal pain; Q69.0 Accessory finger(s); F17.210 Nicotine dependence, cigarettes, uncomplicated; Z91.048 Other nonmedicinal substance allergy status
CPT/HCPCS: 99284; 96374; 96375; 36415; 87210; 84702; 85025; 81025; 80053; 81001; 87491; 87591; 76830; 93976; J3490; J1885; J2270; J2405; J0696

== ENCOUNTER 2020-04-21 20:45 | Emergency (ER) | payer MEDICAID ==
[2020-04-21 20:58] VITALS: BP 132/83
[2020-04-21] MEDS ORDERED: AZITHROMYCIN 250 MG TABLET PO ONE (21:20)
--- NOTE | 2020-04-21 21:23 | ER Document Report ---
ED ENT - General Chief Complaint: Ear Pain Stated Complaint: POSSIBLE INJURY TO RIGHT EAR Time Seen by Provider: 04/21/20 21:09 Primary Care Provider: HILLARY SCHWARTZ DO [Primary Care Provider] - Follow up as needed Mode of Arrival: Ambulatory Information source: Patient Notes: 19-year-old female presented to ED for problems with the right ear. She states she has had problems a lot with his right ear and her ENT doctor has ordered her drops multiple times. She states while she was at work today she put her finger in her ear and there was some blood came out on her finger and on came out of the canal. She states she has an antibiotic at the pharmacy but she has not picked it up he called in a couple days ago and she has not taken it yet. She does not know what the antibiotic is. She states she is "call her mother and see if she knows what the antibiotic is. Patient does have a otitis externa and probably an otitis media to the right ear at this time. She states she is is supposed to see the doctor again in about a month. I have informed her that she should call the doctor tomorrow to schedule another follow-up appointment due to the condition of her ear at this time and the increase in pain. Constitutional: Negative for fever. HENT: Negative for sore throat. Eyes: Negative for visual changes. Cardiovascular: Negative for chest pain. Respiratory: Negative for shortness of breath. Gastrointestinal: Negative for abdominal pain, vomiting or diarrhea. Genitourinary: Negative for dysuria. Musculoskeletal: Negative for back pain. Skin: Negative for rash. Neurological: Negative for headaches, weakness or numbness. 10 point ROS negative except as marked above and in HPI. VITAL SIGNS: Within normal limits. GENERAL: No acute distress, non-toxic appearance. HEAD: Normal with no signs of head trauma. EYES: PERRLA, EOMI, conjunctiva normal, no discharge. EARS: Left ear within normal limits the canal the tympanic membrane and the outer ear. The right ear has swelling to the outer ear canal redness and inflamed areas to the tympanic membrane she was supposed to start a azithromycin 2 days ago but did not pick and shovel worker the prescription. We will give her a dose today and told her that she has to pick and shovel worker the prescription tomorrow. I have encouraged patient to please call the ENT tomorrow NOSE: Normal. THROAT: Oropharynx is normal. NECK: Normal range of motion, no tenderness, supple, no lymphadenopathy, No adenopathy, no JVD. CHEST: Clear breath sounds bilaterally. No wheezes, rales, or rhonchi. CARDIAC: Regular rate and rhythm. S1 and S2, without murmurs, gallops, or rubs. VASCULAR: No Edema. Peripheral pulses normal and equal in all extremities. ABDOMEN: Normal and soft with no tenderness, no masses or pulsatile masses. GASTROINTESTINAL: Bowel sounds normal GENITOURINARY: Normal, No tenderness LYMPATHTIC: No lymphadenopathy noted. MUSCULOSKELETAL: Good range of motion of all major joints. Extremities without clubbing, cyanosis or edema. NEUROLOGICAL: Alert and oriented x 3. No focal sensory or strength deficits. Speech normal. Follows commands appropriately. PSYCHIATRIC: Normal Affect, judgement and mood. SKIN: Normal appearance with no rashes or lesions. TRAVEL OUTSIDE OF THE [place] IN LAST 30 DAYS: No - Related Data Allergies/Adverse Reactions: red dye Allergy (Verified 10/24/18 10:16) Past Medical History - General Information source: Patient - Social History Smoking Status: Never Smoker Frequency of alcohol use: None Drug Abuse: None Lives with: Family Family History: Reviewed & Not Pertinent - Past Medical History Cardiac Medical History: Reports: None Pulmonary Medical History: Reports: None EENT Medical History: Reports: Ears - Right ear long history of infections Neurological Medical History: Reports: None Endocrine Medical History: Reports: None Renal/ Medical History: Reports: None Malignancy Medical History: Reports: None GI Medical History: Reports: None Musculoskeletal Medical History: Reports None Skin Medical History: Reports None Psychiatric Medical History: Reports: None Traumatic Medical History: Reports: None Infectious Medical History: Reports: None Past Surgical History: Reports: Hx Dilation and Curettage, Hx Gynecologic Surgery - d&c, Hx Orthopedic Surgery - bilateral foot toe removal, left forearm, Hx Vascular Surgery - L ARM - Immunizations Immunizations up to date: Yes Hx Diphtheria, Pertussis, Tetanus Vaccination: Yes Physical Exam - Vital signs Vitals: Temp Pulse Resp BP Pulse Ox 98.4 F 106 H 16 132/83 H 96 04/21/20 20:56 04/21/20 20:56 04/21/20 20:56 04/21/20 20:56 04/21/20 20:56 Course - Vital Signs Vital signs: Temp Pulse Resp BP Pulse Ox 98.4 F 106 H 16 132/83 H 96 04/21/20 20:56 04/21/20 20:56 04/21/20 20:56 04/21/20 20:56 04/21/20 20:56 Discharge - Discharge Clinical Impression: Otitis media, right Qualifiers: Otitis media type: unspecified Qualified Code(s): H66.91 - Otitis media, unspecified, right ear Otitis externa Qualifiers: Otitis externa type: unspecified type Chronicity: chronic Laterality: right Qualified Code(s): H60.61 - Unspecified chronic otitis externa, right ear Condition: Stable Disposition: HOME, SELF-CARE Additional Instructions: OTITIS MEDIA: You have a middle ear infection (otitis media). This is usually a complication of a cold or sore throat. The middle ear cavity becomes filled with infection. Pressure and stretching of the ear drum cause pain. Antibiotics are required. A 10 day course is usually prescribed. A decongestant may be recommended if you have a "runny nose." You may need anesthetic drops or other pain medication. A follow-up exam may be recommended to make sure the infection has completely cleared. If the ear begins to drain, it means the ear drum has ruptured. This will usually heal spontaneously. However, it means you should keep the ear dry until re-examined by a doctor. Call the physician or return for examination at once if there is severe headache, stiff neck, confusion, increasing fever, or dizziness. You should improve significantly within two days. If you're not better, call the doctor. OTITIS EXTERNA: You have otitis externa -- an infection of the outer ear canal. This can be very painful. It's sometimes called "swimmer's ear," because it often occurs after prolonged water exposure. Many things, such as earwax and dirt in the ear, can contribute to it. The usual treatment is antibiotic/antiinflammatory ear drops. Occasionally, a wick will be placed in the ear to draw in the medicine. If the infection is severe, an oral antibiotic may be prescribed. Pain medication is often needed. Avoid getting water in the ear. Outer ear infections often take longer to heal than you might expect. Some tenderness and ache in the ear may persist for about two weeks. See your physician if you fail to improve as expected. Call the doctor at once if you develop fever, increasing swelling (particularly if it makes your ear "poke out"), severe headache, stiff neck, or decreased hearing. AZITHROMYCIN: Azithromycin (Zithromax) is a broad spectrum antibiotic in the same class as erythromycin. It can treat a variety of bacterial infections, but is most frequently used for respiratory infections. Azithromycin is extremely long-lasting. It accumulates in body tissues and continues to kill bacteria for many days. In order to improve absorption, Azithromycin should be taken at least one hour before or two hours after a meal. It does not have the same strong tenden cy to upset the stomach as erythromycin and is usually very well tolerated. Patients who have had a rash or other true allergic reactions to erythromycin should not take this medication. Call if you develop gastrointestinal distress, severe diarrhea, rash, hives, itching, or shortness of breath. USE OF ACETAMINOPHEN (Tylenol): Acetaminophen may be taken for pain relief or fever control. It's much safer than aspirin, offering a wider range of "safe" dosages. It is safe during . Some brand names are Tylenol, Panadol, Datril, Anacin 3, Tempra, and Liquiprin. Acetaminophen can be repeated every four hours. The following are maximum recommended dosages: WEIGHT Dose Drops Elixir Chewable(80mg) (LBS.) drprs=droppers tsp=teaspoon 6 40 mg 0.4 ml (1/2) 6-11 80 mg 0.8 ml (full) tsp 1 tab 12-16 120 mg 1 1/2 drprs 3/4 tsp 1 1/2 tabs 17-23 160 mg 2 drprs 1 tsp 2 tabs 24-30 240 mg 3 drprs 1 1/2 tsp 3 tabs 30-35 320 mg 2 tsp 4 tabs 36-41 360 mg 2 1/4 tsp 4 1/2 tabs 42-47 400 mg 2 1/2 tsp 5 tabs 48-53 480 mg 3 tsp 6 tabs 54-59 520 mg 3 1/4 tsp 6 1/2 tabs 60-64 560 mg 3 1/2 tsp 7 tabs 65-70 600 mg 3 3/4 tsp 7 1/2 tabs 71-76 640 mg 4 tsp 8 tabs 77-82 720 mg 4 1/2 tsp 9 tabs 83-88 800 mg 5 tsp 10 tabs >89 pounds or adults 650 mg to 900 mg Acetaminophen can be repeated every four hours. Maximum dose not to exceed 4000 mg a day. These maximum recommended dosages are slightly higher than the dosages written on the product container, but these dosages are very safe and below the toxic dosage for acetaminophen. Continue all your medicines as instructed by your ears nose and throat. You did pick and shovel worker your prescription you were supposed to pick and shovel worker for the azithromycin. We have even your first dose today please pick and shovel worker your prescription tomorrow that the ears nose and throat provider wrote for you. Please take all your eardrops as prescribed. You do have infection in the ear. It is important that you follow-up with your ENT tomorrow as you have been instructed. FOLLOW-UP CARE: If you have been referred to a physician for follow-up care, call the physicians office for an appointment as you were instructed or within the next two days. If you experience worsening or a significant change in your symptoms, notify the physician immediately or return to the Emergency Department at any time for re-evaluation. Forms: Elevated Blood Pressure Referrals: HILLARY SCHWARTZ DO [Primary Care Provider] - Follow up as needed
--- OUTSIDE RECORDS SUMMARY | 2020-04-23 14:47 | XMS REPORT ---
:2000 [facility] [place] [address] [place] [id number] Care Team Providers Name Role Phone Sheyla Quezada Attending Clinician Unavailable Allergies, Adverse Reactions, Alerts This patient has no known allergies or adverse reactions. Medications This patient has no known medications. Problems This patient has no known problems. Procedures Procedure Date / Time Performed Performing Clinician Mitchell [facility] MED/CURRENT MED MERGE 2019-08-06 14:00:00 OFFICE/OUTPATIENT VISIT EST 2019-08-06 14:00:00 Results Test Description Test Time Test Comments Text Results Atomic Results Result Comments CBC (H/H, RBC, INDICES, WBC, PLT) 2019-08-06 15:07:00 Test Item Value Reference Range Comments MPV (test code = 40923609) 11.5 fL 7.5-12.5 MCV (test code = 29128129) 83.8 fL 80.0-100.0 MCHC (test code = 08325101) 33.6 g/dL 32.0-36.0 PLATELET COUNT (test code = 05084940) 305 Thousand/uL 140-400 RDW (test code = 07881612) 12.1 % 11.0-15.0 HEMOGLOBIN (test code = 62724094) 13.9 g/dL 11.7-15.5 RED BLOOD CELL COUNT (test code = 34786203) 4.94 Million/uL 3.80 -5.10 MCH (test code = 38009438) 28.1 pg 27.0-33.0 WHITE BLOOD CELL COUNT (test code = 46711723) 6.8 Thousand/uL 3. 8-10.8 HEMATOCRIT (test code = 53904249) 41.4 % 35.0-45.0 COMPREHENSIVE METABOLIC [id number] 15:07:00 Test Item Value Reference Range Comments ALKALINE PHOSPHATASE (test code = 84956372) 66 U/L 31-1 25 CALCIUM (test code = 90992496) 9.5 mg/dL 8.6-10.2 ALBUMIN/GLOBULIN RATIO (test code = 1.5 (calc) 1.0-2.5 13513394) ALBUMIN (test code = 62534308) 4.2 g/dL 3.6-5.1 PROTEIN, TOTAL (test code = 06226971) 7.0 g/dL 6.1-8.1 AST (test code = 90734892) 17 U/L 10-30 GLOBULIN (test code = 86532990) 2.8 g/dL (calc) 1.9-3.7 BILIRUBIN, TOTAL (test code = 47529204) 0.4 mg/dL 0.2-1.2 ALT (test code = 37627694) 15 U/L 6-29 Urine \S\2019-08-06 14:00:00 Test Item Value Reference Range Comments Urine (test code = URINEPREG) negative N/A Urine \S\2019-04-16 11:00:00 Test Item Value Reference Range Comments Urine (test code = URINEPREG) positive N/A Aerobic Bacterial Culture\S\2019-02-21 00:00:00 Test Item Value Reference Range Comments Result 1 (test code = 6463-4) Yeast isolated. Result 2 (test code = 6463-46) Fungus recovered. Aerobic Bacterial Culture (test code = Final report 634-6) Please note\S\2019-02-21 00:00:00CommentUrine \S\2018-09-19 13:30:00 Test Item Value Reference Range Comments Urine (test code = URINEPREG) positive N/A HCG QUANTITATIVE\S\[id number] 11:35:00 Test Item Value Reference Range Comments TOTAL B-HCG QUANTITATIVE (test code = HCGTE) < 2.39 mIU/mL <6. 15 TOTAL B-HCG INTERPRETATION (test code = HCGIE) NEGATIVE N EGATIVE CHLAM FRANCO PCR URINE INHOUSE\S\[id number] 10:30:00 Test Item Value Reference Range Comments CHLAM PCR (test code = CHLAMPCR) DETECTED NOT DETECT FRANCO PCR (test code = GONPCR) NOT DETECTED NOT DETECT C. trachomatis/N.gonorrhoeae [id number] 14:36:00 Test Item Value Reference Range Comments Neisseria gonorrhoeae RNA (test code = 063126) NOT DETECTED Chlamydia trachomatis RNA (test code = 368171) NOT DETECTED Wet Prep by Molecular [id number] 14:36:00 Test Item Value Reference Range Comments Mikaela species (test code = 271990) NEG Negative Trichomonas vaginalis (test code = 902662) NEG Negat lawrence Gardnerella vaginalis (test code = 458069) POS Negat lawrence Urine \S\2017-03-07 14:00:00 Test Item Value Reference Range Comments Urine (test code = URINEPREG) Negative N/A URINE CULTURE\S\[id number] 17:56:00 Test Item Value Reference Range Comments URINE CULTURE (test code = URC) See Comment URINE CULTURE\[id number] 17:56:00 Test Item Value Reference Range Comments MIXED UROGENITAL BERT (test code = MSF) Assessments Condition Name Status Diagnosis Date Treating Clinici an Body mass index (BMI) 45.0-49.9, adult Active Pelvic and perineal pain Active Complete or unsp spontaneous Active without complication Morbid (severe) obesity due to excess Active calories Encounters Start End Encounter Admission Attending Care Care Encounter Date/Time Date/Time Type Type Clinicians Facility Department ID 2019-08-06 2019-08-06 Outpatient [facility] QuezadaWinnie [place] Christa [id number] 14:00:00 14:00:00 Sheyla Children [id number] [facility], Social History This patient has no known social history. Vital Signs This patient has no known vital signs.
== END 2020-04-21 21:30 | disposition home or self-care (01) ==
LOC: ER 20:45
DX: H66.91 Otitis media, unspecified, right ear (principal); H60.61 Unspecified chronic otitis externa, right ear
CPT/HCPCS: 99283; Q0144